=== PATIENT | female | born 1990 | race Caucasian/White ===

== ENCOUNTER → 2017-10-12 14:08 | Outpatient (CLI) | payer MEDICAID, SELFPAY ==
[2017-10-12 17:30] LABS: Hemoglobin A1c 5.5 % (4.2-6.3)
[2017-10-12 18:16] LABS: Follicle Stimulating Hormone 7.2 mIU/mL; Free T3 2.8 pg/mL (2.18-3.98); Luteinizing Hormone 7.3 mIU/mL; Thyroid Stim Hormone (TSH) 1.43 uIU/mL (0.358-3.74)
== END ==
PROVIDERS: Visit Provider Obstetrics & Gynecology
DX: N92.1 Excessive and frequent menstruation with irregular cycle (principal)
CPT/HCPCS: 36415; 83001; 83002; 83036; 84146; 84439; 84443; 84481

== ENCOUNTER → 2017-11-08 16:22 | Outpatient (CLI) | payer MEDICAID, SELFPAY ==
[2017-11-08 19:00] LABS: Chlamydia Trachomatis by PCR Negative (Negative); Neisserai gonorrhoeae by PCR Negative (Negative); Probe Check PASS; Sample Adequacy Control PASS; Specimen Processing Control PASS
== END ==
PROVIDERS: Visit Provider Obstetrics & Gynecology
DX: Z11.3 Encounter for screening for infections with a predominantly sexual mode of transmission (principal); Z30.430 Encounter for insertion of intrauterine contraceptive device
CPT/HCPCS: 87491; 87591

== ENCOUNTER → 2018-03-19 13:38 | Outpatient (CLI) | payer MEDICAID, SELFPAY ==
[2018-03-26 13:42] LABS: HPV Reflexed? NOT INDICATED
== END ==
PROVIDERS: Visit Provider Obstetrics & Gynecology
DX: Z12.4 Encounter for screening for malignant neoplasm of cervix (principal)
CPT/HCPCS: 88175; G0145

== ENCOUNTER → 2018-04-04 11:30 | Outpatient (CLI) | payer MEDICAID, SELFPAY ==
--- NOTE | 2018-04-04 | IMM_PTH ---
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 Yury Gasca MD : 1990 BED: DIS: SPEC #: [id number] RECD: 04/05/18 13:57 STATUS: MIL RE #: [id number] SILVIA: 04/04/18 00:[address]: Yury Gasca DEPT: IMMUNOHISTOCHEMISTRY RECD BY: Devorah Foss Tissues: Uterine cervix, NOS Procedures: p16 (initial) KI-67 (add) PHYSICIAN & INSTITUTION [place] [address] SPECIMEN INFORMATION: Tissue Source: A. Cervical biopsy Clinical Info: RANJANA pap 03/19/18 Specimen Number: [id number] CPT code: 29920, 42751 METHODOLOGY: Deparaffinized sections of prefer/formalin-fixed tissue or PAP/DQ stained slides are incubated with monoclonal/polyclonal antibodies/oligonucleotide probes. Localization is made via biotin free immunoperoxidase method. Appropriate controls are performed and reacted as expected. Results on target cell population are indicated in the following table: RESULTS: ANTIBODY / CLONE RESULT P16 (E6H4) positive, block-like Ki-67 (30-9) positive, moderate These tests were developed and their performance characteristics determined by [facility]. They may not have been cleared or approved by the U.S. Food and Drug Administration. The FDA has determined that such clearance or approval is not necessary. 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
--- NOTE | 2018-04-04 11:30 | CER_PTH ---
PATIENT: HERMES GUNTER [facility] U#:[id number] AGE/SX: 34/F ROOM: RE04/04/[address]: Dr. uYry Gasca MD : 1990 BED: DIS: SPEC #: [id number] RECD: 04/04/18 15:46 STATUS: MIL MAGEN #: [id number] SILVIA: 04/04/18 11:[address]: Yury Gasca DEPT: SURGICAL PATHOLOGY RECD BY: Devorah Foss Tissues: A - Uterine cervix, NOS B - Uterine cervix, NOS C - Endocervical Procedures: Surgery Specimen Level IV HEADER OPERATION: Colposcopy PRE-OP DIAGNOSIS: LGSIL pap 03/19/18 TISSUE SUBMITTED: A. Cervical biopsy, 6 o'clock, B. Cervical biopsy, 12 o'clock, C. ECC MICROSCOPIC DIAGNOSIS A. Cervix at 6 o'clock, biopsy: Moderate to focal severe squamous dysplasia and disarticulated epithelium, TEJ II-III (HGSIL). B. Cervix at 12 o'clock, biopsy: Focal HPV change suspected. Squamous metaplasia and chronic inflammation. C. Endocervix, curettings: Rare strips of benign superficial endocervix. No evidence of dysplasia. AM:aditi 04/05/18 COMMENT A. Immunohistochemistry ([id number]) supports the above diagnosis. Case has been reviewed in consultation with Dr. Pardo who concurs with the above diagnosis. IDC:SJ MICROSCOPIC DESCRIPTION Slides are reviewed. GROSS DESCRIPTION A. Received is one container labeled with the patient name and designated cervix biopsy 6 o'clock. The specimen consists of multiple irregular fragments of light moore soft tissue that in aggregate measure 0.5 x 0.5 x 0.1 cm. The specimen is totally submitted in one cassette. B. Received is one container labeled with the patient name and designated cervix biopsy 2 o'clock. The specimen consists of one irregular fragment of light moore soft tissue that measures 0.3 x 0.2 x 0.1 cm. The specimen is totally submitted in one cassette. C. Received in fixative is one container labeled with the patient's name and designated ECC. The specimen consists of mucoid material that measure in aggregate 1 x 0.1 x less than 0.1 cm. The specimen is totally submitted in one cassette. /AM:aditi 04/04/18 TC: 0 CPT: 26007
== END ==
PROVIDERS: Referring Provider Obstetrics & Gynecology; Visit Provider Obstetrics & Gynecology
DX: R87.612 Low grade squamous intraepithelial lesion on cytologic smear of cervix (LGSIL) (principal)
CPT/HCPCS: 88305; 88341; 88342

== ENCOUNTER 2018-05-09 10:30 | Day surgery (SDC) | payer MEDICAID, SELFPAY ==
[2017-12-06 11:16] VITALS: BMI 21.9
[2018-05-06 11:46] LABS: Hematocrit 40.9 % (37-47); Hemoglobin 13.5 g/dl (12.0-15.0); Mean Corpuscular Hgb 29.2 pg (27.0-32.0); Mean Corpuscular Volume 88.3 fL (81-99); Mean Platelet Vol. 11.1 fl (6.2-12.0); Platelet Count 227 K/mm3 (150-450); RBC Distribution Width CV 13.9 % (11.6-14.6); RBC Distribution Width SD 44.4 fl (35.1-43.9); Red Blood Count 4.63 M/mm3 (4.2-5.4); White Blood Count 10.4 K/mm3 (4.4-11.0)
[2018-05-06 11:47] LABS: Scan Indicated on CBC? Y/N NO
[2018-05-06 11:48] LABS: Prothrombin Time (Protime)PT. 13.3 SECONDS (11.7-14.9)
[2018-05-06 11:49] LABS: Partial Thromboplast Time 31.4 Seconds (24.1-36.2)
[2018-05-06 12:15] LABS: Pregnancy, Serum, hCG Quali. NEGATIVE Negative (0-9 Nonpreg)
[2018-05-09] VITALS (9 sets, daily range): BP systolic 83–107; BP diastolic 51–65; PULSE 68–88; RESP 16–18; TEMP 36.1–36.8; O2SAT 94–100; BMI 22.9
--- NOTE | 2018-05-09 | IMM_PTH ---
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 Yury Gasca MD : 1990 BED: DIS: 05/09/2018 SPEC #: [id number] RECD: 05/10/18 14:32 STATUS: MIL REQ #: [id number] SILVIA: 05/09/18 00:[address]: Yury Gasca DEPT: IMMUNOHISTOCHEMISTRY RECD BY: Lorena Caruso ENTERED: 05/10/18 14:33 SP TYPE: IMMUNO OTHR DR: Dr. Kyle Yap, DO Tissues: Uterine cervix, NOS Procedures: p16 (initial) KI-67 (add) PHYSICIAN & [place] [address] SPECIMEN INFORMATION: Tissue Source: Portion of ectocervix Clinical Info: Carcinoma in situ Specimen Number: [id number] CPT code: 41446, 89363 METHODOLOGY: Deparaffinized sections of prefer/formalin-fixed tissue or PAP/DQ stained slides are incubated with monoclonal/polyclonal antibodies/oligonucleotide probes. Localization is made via biotin free immunoperoxidase method. Appropriate controls are performed and reacted as expected. Results on target cell population are indicated in the following table: RESULTS: ANTIBODY / CLONE RESULT P16 (E6H4) negative Ki-67 (30-9) negative These tests were developed and their performance characteristics determined by [facility]. They may not have been cleared or approved by the U.S. Food and Drug Administration. The FDA has determined that such clearance or approval is not necessary. INTERPRETATION: Portion of ectocervix: Consistent with focal mild squamous dysplasia. SJ:noe 05/13/18
--- NOTE | 2018-05-09 07:21 | PCM.OPRPT ---
Problem List (1) Cervical dysplasia Status: Chronic Report of Operation Date of Procedure: 05/09/18 Pre-Operative Diagnosis: Moderate Cervical Dysplasia Post-Operative Diagnosis: same Surgery/Procedure Performed:: Loop Electrosurgical Excisional Procedure (LEEP) Description of Surgical Findings:: Normal appearing cervix and vagina. Lugol's easily identified transition zone. IUD strings in place but were cut during procedure. cable assembler: None Type of Anesthesia:: MAC Anesthesiologist: Francesca Hale Special Medications: none Specimen's removed: Portion of ectocervix Drains: none Estimated Blood Loss (mL): minimal Fluids Replaced: 400cc LR Description of Procedure: Caitie was taken to the OR with IV running. She was given two grams of Cefotetan intravenously prior to the procedure for surgical prophylaxis. MAC anesthesia was then introduced without complication. She was then prepped and draped in the dorsal lithotomy position. A shielded speculum was then placed. The cervix was then painted with Lugol's solution to identify the transition zone. A medium sized loop was then used to removed the ectocervix. Ball cautery was used to cauterized the margins of the surgical site and to affect excellent hemostasis. With hemostasis assured all instruments were removed from the vagina. Sponge and instrument counts were correct. She was reversed from sedation and taken to the recovery room in stable condition. Grafts/Implants Used: none - Complications none - Admit VTE Documentation VTE Present on Admission: No VTE Mechan Device Prophylaxis: [facility] [place]'s VTE Pharm Prophylaxis ordered?: No
--- NOTE | 2018-05-09 07:28 | OP.PCM_ITS ---
Problem List (1) Cervical dysplasia Status: Chronic Report of Operation Date of Procedure: 05/09/18 Pre-Operative Diagnosis: Moderate Cervical Dysplasia Post-Operative Diagnosis: same Surgery/Procedure Performed:: Loop Electrosurgical Excisional Procedure (LEEP) Description of Surgical Findings:: Normal appearing cervix and vagina. Lugol's easily identified transition zone. IUD strings in place but were cut during procedure. retinal angiographer: None Type of Anesthesia:: MAC Anesthesiologist: Francesca Hale Special Medications: none Specimen's removed: Portion of ectocervix Drains: none Estimated Blood Loss (mL): minimal Fluids Replaced: 400cc LR Description of Procedure: Caitie was taken to the OR with IV running. She was given two grams of Cefotetan intravenously prior to the procedure for surgical prophylaxis. MAC anesthesia was then introduced without complication. She was then prepped and draped in the dorsal lithotomy position. A shielded speculum was then placed. The cervix was then painted with Lugol's solution to identify the transition zone. A medium sized loop was then used to removed the ectocervix. Ball cautery was used to cauterized the margins of the surgical site and to affect excellent hemostasis. With hemostasis assured all instruments were removed from the vagina. Sponge and instrument counts were correct. She was reversed from sedation and taken to the recovery room in stable condition. Grafts/Implants Used: none - Complications none - Admit VTE Documentation VTE Present on Admission: No VTE Mechan Device Prophylaxis: [facility] [place] Prophylaxis ordered?: No
[2018-05-09 11:01] LABS: Internal QC Validated? YES +Cl - CLEAR BKGD; Pregnancy, Urine Negative Negative
--- NOTE | 2018-05-09 12:00 | CER_PTH ---
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 Yury Gasca MD : 1990 BED: DIS: 05/09/2018 SPEC #: [id number] RECD: 05/09/18 12:48 STATUS: MIL REMatt #: [id number] SILVIA: 05/09/18 12:[address]: Yury Gasca DEPT: SURGICAL PATHOLOGY RECD BY: Fish Block ENTERED: 05/09/18 13:38 SP TYPE: CERV OTHR DR: Dr. 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 Resection margins are free of dysplastic changes. SJ:noe 05/10/18 COMMENT Results of immunohistochemistry ([id number]) for surrogate HPV marker (p16) will be reported separately. Please make reference to previous specimen ([id number]) cervix at 6 o'clock, biopsy with diagnosis of moderate focal severe squamous dysplasia and disarticulated epithelium. MICROSCOPIC DESCRIPTION Slides are reviewed. GROSS DESCRIPTION Received in fixative is one container labeled with the patient's name and designated portion of ectocervix. The specimen consists of a C-shaped fragment of mucosa with attached submucosal tissue measuring 2.5 x 1 x 0.4 cm. The nonmucosal surfaces are inked. The specimen is serially sectioned and totally submitted in three cassettes. Note, a black suture measuring approximately 1.5 cm in greatest dimension is present free in the container. / AM:noe 05/09/18 TC:5 CPT: 95316
--- NOTE | 2018-05-09 12:01 | DCINST_ITS ---
You will use the following diet at home:: No restrictions Discharge Activity: Return to Normal Activity, May Drive, May not drive while t aking narcotic pain medications., May Shower Return to work on:: 05/13/18 May shower in (days): 0 May resume sexual activity in: 4 weeks Call your doctor if your incision/area has: Sudden Increased Bleeding, Foul Smelling Discharge Call your doctor if you observe: Fever of 101 or Higher, Inability to urinate, Inability to have a bowel movement, Using more than one pad per hour, Shortness of breath, Chest pain, Calf discomfort, Uncontrolled pain Cleanse incision/area with: Soap & Water Allergies/Adverse Reactions: Allergies aspirin Adverse Reaction (Verified 05/02/18 08:53) Hives Penicillins [PCN] Adverse Reaction (Verified 05/02/18 08:53) Other Medications to take at Discharge Ibuprofen [Motrin] 600 mg PO Q6H PRN PRN #20 tab 03/30/15 acetaminophen 500 mg tablet 500 mg PO Q6H PRN 12/06/17 citalopram 20 mg tablet 20 mg PO QDAY #90 tab 12/06/17 omeprazole 40 mg capsule,delayed release 40 mg PO QHS 12/06/17 Ibuprofen 600 mg PO 4X/DAY #20 tab 05/09/18 Oxycodone [Oxyir] 5 mg PO Q6H PRN PRN 7 Days #10 tab 05/09/18 The following prescriptions were given: Oxycodone [Oxyir] 5 mg PO Q6H PRN PRN 7 Days #10 tab PRN Reason: Severe Pain (-02/27) Ibuprofen 600 mg PO 4X/DAY #20 tab Primary Care Physician: Kyle Yap DO [Primary Care Provider] - Test Results: Test results from this visit will be discussed in further detail at your follow- up appointment, if applicable. Please Follow Up With: Yury Gasca MD When: one week Proposed Discharge Date: 05/09/18
== END 2018-05-09 13:41 | disposition home or self-care (01) ==
LOC: SDC 10:45 → AC 11:03
PROVIDERS: Anesthesiology; Family Provider Family Medicine; PCP Family Medicine; Referring Provider Obstetrics & Gynecology; Visit Provider Obstetrics & Gynecology
PROC: 0UBC7ZZ Excision of Cervix, Via Natural or Artificial Opening (ICD-10-PCS; CPT 57522; principal; 2018-05-09 11:45)
DX: N87.0 Mild cervical dysplasia (principal); K21.9 Gastro-esophageal reflux disease without esophagitis; F17.200 Nicotine dependence, unspecified, uncomplicated; Z79.899 Other long term (current) drug therapy
CPT/HCPCS: 57522; 36415; 81025; 84703; 85027; 85610; 85730; 86850; 86900; 88305; 88307; 88341; 88342; J7120; J2405

== ENCOUNTER → 2018-05-30 15:36 | Outpatient (CLI) | payer MEDICAID, SELFPAY ==
[2018-05-30 14:39] VITALS: BMI 22.9
[2018-05-30 17:37] LABS: Absolute Lymphocyte Count 2.93 X10^3/ul (0.83-4.51); Absolute Neutrophil Count 5.9 X10^3/uL (2.0-7.7); Basophil# 0.03 X10^3/uL; Basophil% 0.3 % (0-1); Eosinophil# 0.53 X10^3/uL; Eosinophils% 5.3 % (0-5); Hematocrit 41.3 % (37-47); Hemoglobin 13.3 g/dl (12.0-15.0); Lymphocyte # 2.93 X10^3/ul (4.0); Lymphocyte % 29.2 % (19-41); Mean Corp Hgb Conc 32.2 g/gl (32-36); Mean Corpuscular Hgb 28.7 pg (27.0-32.0); Mean Platelet Vol. 11.4 fl (6.2-12.0); Monocyte# 0.58 X10^3/uL; Monocyte% 5.8 % (0-10); Neutrophil # 5.93 X10^3/uL (2.7-7.7); Neutrophil % 59.2 % (47-70); Platelet Count 250 K/mm3 (150-450); RBC Distribution Width CV 13.4 % (11.6-14.6); RBC Distribution Width SD 43.7 fl (35.1-43.9); Red Blood Count 4.64 M/mm3 (4.2-5.4)
[2018-05-30 17:41] LABS: POSITIVE COUNT NO; POSITIVE DIFFERENTIAL NO; POSITIVE MORPHOLOGY NO
== END ==
PROVIDERS: Family Provider Family Medicine; PCP Family Medicine; Referring Provider Family Medicine; Visit Provider Family Medicine
DX: D64.9 Anemia, unspecified (principal)
CPT/HCPCS: 36415; 85025

== ENCOUNTER 2018-06-19 07:25 | Day surgery (SDC) | payer MEDICAID, SELFPAY ==
[2018-06-07 09:12] VITALS: BMI 22.9
--- NOTE | 2018-06-19 | GASB_PTH ---
PATIENT: HERMES GUNTER LOC: EN U#:[id number] AGE/SX: 27/F ROOM: RE06/19/[address]: Dr. Marly Pérez MD : 1990 BED: DIS: 06/19/2018 SPEC #: [id number] RECD: 06/19/18 09:07 STATUS: MIL MAGEN #: [id number] SILVIA: 06/19/18 00:[address]: Marly Pérez DEPT: SURGICAL PATHOLOGY RECD BY: Catarino Wilkinson ENTERED: 06/19/18 10:38 SP TYPE: Gastric Bx OTHR DR: Dr. Kyle Yap, DO Tissues: A - Gastric mucous membrane B - Gastric mucous membrane Procedures: Special Stain Group II Surgery Specimen Level IV Alcian Blue/PAS (control) HEADER OPERATION: Colonoscopy[place] [place] DIAGNOSIS: GERD, bright red blood per rectum TISSUE SUBMITTED: A - Antrum biopsy for H. pylori and path, B - GE junction biopsy MICROSCOPIC DIAGNOSIS A. Antrum biopsy for H. pylori and pathology: Mild chronic antral gastritis. B. Gastroesophageal junction, biopsy: Esophagogastric junctional mucosa showing moderate chronic inflammation and reactive glandular changes. No intestinal metaplasia or glandular dysplasia found. Alcian blue/PAS stain with appropriate control is negative for intestinal type goblet cell metaplasia. CE:noe 06/20/18 COMMENT A. The results of immunohistochemistry for Helicobacter pylori will be reported separately ([id number]). MICROSCOPIC DESCRIPTION Slides are reviewed. GROSS DESCRIPTION A - Received in fixative is one container labeled with the patient's name and designated gastric antrum. The specimen consists of multiple irregular fragments of light moore soft tissue that in aggregate measure 0.5 x 0.3 x 0.1 cm. The specimen is totally submitted in one cassette. B - Received in fixative is one container labeled with the patient's name and designated GE junction. The specimen consists of one irregular fragment of light moore soft tissue that measures 0.5 x 0.3 x 0.1 cm. The specimen is totally submitted in one cassette. / AM:noe 06/19/18 TC:3 CPT: 39917 x2, 01683
[2018-06-19 07:39] VITALS: BP 106/65; PULSE 81; RESP 16; TEMP 37.2; O2SAT 100; BMI 23.6
--- NOTE | 2018-06-19 08:30 | IMM_PTH ---
PATIENT: HERMES GUNTER LOC: EN U#:[id number] AGE/SX: 27/F ROOM: RE06/19/[address]: Dr. Marly Pérez MD : 1990 BED: DIS: 06/19/2018 SPEC #: [id number] RECD: 06/19/18 12:52 STATUS: [place] REQ #: [id number] SILVIA: 06/19/18 08:[address]: Marly Pérez DEPT: IMMUNOHISTOCHEMISTRY RECD BY: Lorena Caruso ENTERED: 06/19/18 12:52 SP TYPE: IMMUNO OTHR DR: Dr. Kyle Yap, DO Tissues: A - Stomach, NOS Procedures: H Pylori (initial) PHYSICIAN & INSTITUTION [place] [address] SPECIMEN INFORMATION: Tissue Source: A - Antrum biopsy Clinical Info: GERD, bright red blood per rectum Specimen Number: [id number] CPT code: 14178 METHODOLOGY: Deparaffinized sections of prefer/formalin-fixed tissue or PAP/DQ stained slides are incubated with monoclonal/polyclonal antibodies/oligonucleotide probes. Localization is made via biotin free immunoperoxidase method. Appropriate controls are performed and reacted as expected. Results on target cell population are indicated in the following table: RESULTS: ANTIBODY / CLONE RESULT Block A H Pylori (polyclonal) negative These tests were developed and their performance characteristics determined by [facility]. They may not have been cleared or approved by the U.S. Food and Drug Administration. The FDA has determined that such clearance or approval is not necessary. INTERPRETATION: A. Antrum biopsy: Immunohistochemical stain with appropriate control is negative for Helicobacter organisms. AM:noe 06/20/18
[2018-06-19 08:58] VITALS: BP 106/65; BP 97/66; PULSE 88; RESP 16; TEMP 36.5; O2SAT 96
--- NOTE | 2018-06-19 09:02 | OP.ENDO_ITS ---
Patient Name: Caitie Escalante Procedure Date: 06/19/2018 8:22 AM Date of : 1990 Age: 27 Procedure: Upper GI endoscopy Indications: Gastro-esophageal reflux disease Providers: Marly Pérez MD Medicines: Monitored Anesthesia Care Patient Profile: This is a 27 year old female. Complications: No immediate complications. Procedure: Pre-Anesthesia Assessment: - Prior to the procedure, a History and Physical was performed, and patient medications and allergies were reviewed. The patient's tolerance of previous anesthesia was also reviewed. The risks and benefits of the procedure and the sedation options and risks were discussed with the patient. All questions were answered, and informed consent was obtained. Prior Anticoagulants: The patient has taken no previous anticoagulant or antiplatelet agents. ASA Grade Assessment: II - A patient with mild systemic disease. After reviewing the risks and benefits, the patient was deemed in satisfactory condition to undergo the procedure. After obtaining informed consent, the endoscope was passed under direct vision. Throughout the procedure, the patient's blood pressure, pulse, and oxygen saturations were monitored continuously. The gastroscope was introduced through the mouth, and advanced to the second part of duodenum. The upper GI endoscopy was accomplished without difficulty. The patient tolerated the procedure well. Scope In: 8:32:34 AM Scope Out: 8:38:46 AM Total Procedure Duration Time 0 hours 6 minutes 12 seconds Findings: The Z-line was irregular and was found 37 cm from the incisors. Biopsies were taken with a cold forceps for histology. Localized mildly erythematous mucosa without bleeding was found in the prepyloric region of the stomach. Biopsies were taken with a cold forceps for Helicobacter pylori cultures. Biopsies were taken with a cold forceps for histology. The examined duodenum was normal. The exam of the esophagus was otherwise normal. The exam of the stomach was otherwise normal. Impression: - Z-line irregular, 37 cm from the incisors. Biopsied. - Erythematous mucosa in the prepyloric region of the stomach. Biopsied. - Normal examined duodenum. Recommendation: - Await pathology results. - Discharge patient to home. - Continue present medications. - Use sucralfate tablets 1 gram PO QID for 2 weeks. Procedure Code(s): --- Professional --- 51997, Esophagogastroduodenoscopy, flexible, transoral; with biopsy, single or multiple Diagnosis Code(s): --- Professional --- K21.9, Gastro-esophageal reflux disease without esophagitis K31.89, Other diseases of stomach and duodenum K22.8, Other specified diseases of esophagus CPT copyright 2017 [employer]. All rights reserved. The codes documented in this report are preliminary and upon bed manager review may be revised to meet current compliance requirements. MD Marly Hernandes MD 06/19/2018 9:01:44 AM This report has been signed electronically. Number of Addenda: 0 Note Initiated On: 06/19/2018 8:22 AM
[2018-06-19 09:05] VITALS: BP 106/65; BP 94/61; PULSE 88; RESP 16; O2SAT 100
--- NOTE | 2018-06-19 09:09 | OP.ENDO_ITS ---
Patient Name: Caitie Escalante Procedure Date: 06/19/2018 8:40 AM Date of : 1990 Age: 27 Procedure: Colonoscopy Indications: Rectal bleeding Providers: Marly Pérez MD Medicines: Monitored Anesthesia Care Patient Profile: This is a 27 year old female. This is a 27 year old female. Last Colonoscopy: none. The patient's first colonoscopy is today. Complications: No immediate complications. Procedure: Pre-Anesthesia Assessment: - Prior to the procedure, a History and Physical was performed, and patient medications and allergies were reviewed. The patient's tolerance of previous anesthesia was also reviewed. The risks and benefits of the procedure and the sedation options and risks were discussed with the patient. All questions were answered, and informed consent was obtained. Prior Anticoagulants: The patient has taken no previous anticoagulant or antiplatelet agents. ASA Grade Assessment: II - A patient with mild systemic disease. After reviewing the risks and benefits, the patient was deemed in satisfactory condition to undergo the procedure. After I obtained informed consent, the scope was passed under direct vision. Throughout the procedure, the patient's blood pressure, pulse, and oxygen saturations were monitored continuously. The colonoscope was introduced through the anus and advanced to the cecum, identified by the appendiceal orifice, ileocecal valve and palpation. The colonoscopy was performed without difficulty. The patient tolerated the procedure well. The quality of the bowel preparation was good. Scope In: 8:41:28 AM Scope Withdrawal Time 0 hours 8 minutes 11 seconds Scope Out: 8:53:34 AM Total Procedure Duration Time 0 hours 12 minutes 6 seconds Findings: The perianal and digital rectal examinations were normal. The entire examined colon appeared normal on direct and retroflexion views. Impression: - The entire examined colon is normal on direct and retroflexion views. - No specimens collected. Recommendation: - Discharge patient to home. - Continue present medications. - Repeat colonoscopy at age 51 [reason]. Procedure Code(s): --- Professional --- 00326, Colonoscopy, flexible; diagnostic, including collection of specimen(s) by brushing or washing, when performed (separate procedure) Diagnosis Code(s): --- Professional --- K62.5, Hemorrhage of anus and rectum CPT copyright 2017 [employer]. All rights reserved. The codes documented in this report are preliminary and upon substation operator apprentice review may be revised to meet current compliance requirements. MD Maryl Hernandes MD 06/19/2018 9:08:37 AM This report has been signed electronically. Number of Addenda: 0 Note Initiated On: 06/19/2018 8:40 AM
[2018-06-19 09:10] VITALS: BP 106/65; BP 99/72; PULSE 80; RESP 16; O2SAT 98
[2018-06-19 09:15] VITALS: BP 100/64; BP 106/65; PULSE 72; RESP 16; TEMP 36.8; O2SAT 100
[2018-06-19 09:27] VITALS: BP 106/65
== END 2018-06-19 09:42 | disposition home or self-care (01) ==
LOC: EN 07:25 → AC 07:27
PROVIDERS: Family Provider Family Medicine; PCP Family Medicine; Referring Provider Surgery; Visit Provider Surgery
PROC: 0DJD8ZZ Inspection of Lower Intestinal Tract, Via Natural or Artificial Opening Endoscopic (ICD-10-PCS; CPT 45378; principal; 2018-06-19 08:25)
DX: K29.50 Unspecified chronic gastritis without bleeding (principal); K21.0 Gastro-esophageal reflux disease with esophagitis; F32.9 Major depressive disorder, single episode, unspecified; F41.9 Anxiety disorder, unspecified; F17.200 Nicotine dependence, unspecified, uncomplicated; Z80.0 Family history of malignant neoplasm of digestive organs; Z79.899 Other long term (current) drug therapy
CPT/HCPCS: 43239; 45378; 88305; 88313; 88342; J7120; J2405

== ENCOUNTER → 2018-10-08 | Outpatient (CLI) | payer MEDICAID, SELFPAY ==
[2018-10-16 16:40] LABS: HPV HC, High Risk Negative (Negative)
== END | disposition home or self-care (01) ==
LOC: LABSPEC 11:00
PROVIDERS: Visit Provider Obstetrics & Gynecology
DX: R87.612 Low grade squamous intraepithelial lesion on cytologic smear of cervix (LGSIL) (principal); R87.613 High grade squamous intraepithelial lesion on cytologic smear of cervix (HGSIL)
CPT/HCPCS: 87624; 88175; G0145

== ENCOUNTER 2018-11-05 01:11 | Emergency (ER) | payer MEDICAID, SELFPAY ==
[2018-11-05 01:12] VITALS: BP 114/66; PULSE 92; RESP 14; TEMP 36.8; O2SAT 98; BMI 24.3
[2018-11-05] MEDS: Ketorolac 30 MG/ML Syringe IV (01:55)
[2018-11-05] MEDS: 0.9% Normal Saline 1,000 ML 150 ML IV (01:55)
[2018-11-05] MEDS: Ondansetron 4 MG/2 ML Vial IV (01:55)
[2018-11-05 02:02] LABS: Mucous, Urine 0 SEEN /hpf (<or=2+); Red Blood Cells-Urine 0 SEEN /hpf (0-5); White Blood Cells 0 SEEN /hpf (0-5)
[2018-11-05 02:07] LABS: Absolute Lymphocyte Count 3.45 X10^3/ul (0.83-4.51); Absolute Neutrophil Count 4.7 X10^3/uL (2.0-7.7); Basophil# 0.02 X10^3/uL; Basophil% 0.2 % (0-1); Color, Urine Straw (Yellow); Eosinophil# 0.44 X10^3/uL; Eosinophils% 4.8 % (0-5); Glucose, Dipstick Normal (Normal); Hematocrit 39.9 % (37-47); Hemoglobin 13.5 g/dl (12.0-15.0); Ketone-Dipstick Negative (Negative); Leukocyte Esterase-Dipstick Negative /ul (Negative); Lymphocyte # 3.45 X10^3/ul (4.0); Mean Corp Hgb Conc 33.8 g/gl (32-36); Mean Corpuscular Hgb 29.9 pg (27.0-32.0); Mean Corpuscular Volume 88.3 fL (81-99); Mean Platelet Vol. 11.1 fl (6.2-12.0); Monocyte# 0.48 X10^3/uL; Monocyte% 5.3 % (0-10); Neutrophil # 4.68 X10^3/uL (2.7-7.7); Neutrophil % 51.5 % (47-70); Nitrite-Dipstick Negative (Negative); Occult Blood-Urine Negative /ul (Negative); Platelet Count 172 K/mm3 (150-450); Protein-Dipstick Negative (Negative); RBC Distribution Width SD 41.6 fl (35.1-43.9); Red Blood Count 4.52 M/mm3 (4.2-5.4); Specific Gravity, Urine 1.005 (1.002-1.030); Urine Bilirubin Dipstick Negative (Negative); Urine Clarity Clear (Clear); Urine Urobilinogen Normal (Normal); White Blood Count 9.1 K/mm3 (4.4-11.0)
[2018-11-05 02:08] LABS: POSITIVE COUNT NO; POSITIVE DIFFERENTIAL NO; POSITIVE MORPHOLOGY NO
[2018-11-05 02:18] LABS: Bacteria RARE /hpf (None Seen); Squamous Epithelial Cells - UA 0-5 SEEN /hpf (5-10)
[2018-11-05 02:22] LABS: Anion Gap 7 (5-15); BUN 13 mg/dL (7-18); BUN/Creat Ratio 19.8 RATIO (10-20); Calcium,Total 8.6 mg/dL (8.5-10.1); Chloride 106 mmol/L (98-107); Creatinine, Serum 0.66 mg/dL (0.55-1.02); EST Glomerular Filtration Rate 115 mL/min (>60); Est Glom Filt Rate - Afr Amer 139 mL/min (>60); Estimated Creatinine Clearance 115.21 ml/min; Glucose 106 mg/dL (74-106); Potassium 3.8 mmol/L (3.5-5.1); Sodium Level 140 mmol/L (136-145)
--- NOTE | 2018-11-05 02:34 | ED.DCSUM_ITS ---
- ER Visit Summary Date of Service: 11/05/18 Chief Complaint: Abdominal pain History of Present Illness: The patient is a 28 F who developed pain in the suprapubic region rather suddenly [place] hour prior to arrival. She states she felt nauseated and vomited x1. She has had no back pain. She does note urinary frequency recently but no dysuria. She has not had fever or chills. Patient states her last menstrual cycle was October 11 through October 21. She had both fallopian tubes completely removed in the past. Physical Examination: Vital signs unremarkable. She is afebrile. Patient sitting upright in bed no acute distress. She is nontoxic appearing. Heart is regular rate and rhythm. Lung sounds are clear. Abdomen is soft with mild suprapubic region. No guarding or rebound. Active bowel sounds are noted. No CVA tenderness. Test Results: CBC and chemistry studies are unremarkable. Urinalysis is normal. Emergency Department Course and Treatment: Patient is given Toradol, Zofran, and IV fluids. On repeat evaluation she is resting comfortably. Advised her at this time I do not see a specific cause for her pain. My clinical suspicion for kidney stone is low. With her urinary frequency advised she may have a very early infection, but at this time I cannot detect on her testing. She continues to have symptoms she is to have her urine rechecked. She will get a prescription for naproxen to help with pain. Treatment Plan: [] Disposition: Discharge Impression: Abdominal pain, uncertain etiology This note was generated with [employer]pi[employer] dictation software. It may contain incorrect words, spelling, and punctuation that were not noted in review of the chart prior to signing ED Disposition - Plan for ED Patient: Disposition: Home or Assisted Living Instructions: ED Abdominal Pain Unkn Cause Prescriptions: Naproxen [Naprosyn] 500 mg PO BID PRN PRN #20 tablet PRN Reason: Pain Referrals: Kyle Yap, DO [Primary Care Provider] - 1 Week if not improving
== END 2018-11-05 02:47 | disposition home or self-care (01) ==
PROVIDERS: Emergency Provider Emergency Medicine; Family Provider Family Medicine; PCP Family Medicine
DX: R10.30 Lower abdominal pain, unspecified (principal); K21.9 Gastro-esophageal reflux disease without esophagitis; F32.9 Major depressive disorder, single episode, unspecified; F41.9 Anxiety disorder, unspecified; Z72.0 Tobacco use; Z79.899 Other long term (current) drug therapy
CPT/HCPCS: 80048; 81001; 85025; 96361; 96374; 96375; 99283; J7030; J2405

== ENCOUNTER 2019-02-10 05:37 | Day surgery (SDC) | payer MEDICAID, SELFPAY ==
[2018-11-27 09:44] VITALS: BMI 24.3
[2019-02-05 12:40] LABS: Hematocrit 40.7 % (37-47); Hemoglobin 13.4 g/dL (12.0-15.0); Mean Corp Hgb Conc 32.9 g/dL (32-36); Mean Corpuscular Hgb 29.5 pg (27.0-32.0); Mean Corpuscular Volume 89.6 fL (81-99); Mean Platelet Vol. 11.2 fl (6.2-12.0); Platelet Count 207 K/mm3 (150-450); RBC Distribution Width CV 12.6 % (11.6-14.6); RBC Distribution Width SD 41.8 fl (35.1-43.9); Red Blood Count 4.54 M/mm3 (4.2-5.4); White Blood Count 9.9 K/mm3 (4.4-11.0)
[2019-02-05 12:43] LABS: International Normalized Ratio 1.1; Prothrombin Time (Protime)PT. 13.6 SECONDS (11.7-14.9)
[2019-02-05 12:44] LABS: Partial Thromboplast Time 29.6 Seconds (24.1-36.2)
[2019-02-05 13:17] LABS: Creatinine, Serum 0.66 mg/dL (0.55-1.02); EST Glomerular Filtration Rate 114 mL/min (>60); Est Glom Filt Rate - Afr Amer 137 mL/min (>60)
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
[2019-02-10] VITALS (12 sets, daily range): BP systolic 93–117; BP diastolic 49–73; PULSE 80–98; RESP 16–18; TEMP 36.1–37.1; O2SAT 96–100; BMI 23.3; BMI 25.7
[2019-02-10] MEDS: Lactated Ringers 1,000 ML 100 ML IV ×2 (06:46→07:00)
--- NOTE | 2019-02-10 07:30 | HYST_PTH ---
PATIENT: HERMES GUNTER LOC: [facility] – [place] U#:[id number] AGE/SX: 28/F ROOM: RE02/10/[address]: Dr. Arun Ozuna MD : 1990 BED: DIS: 02/11/2019 SPEC #: [id number] RECD: 02/10/19 11:29 STATUS: MIL MAGEN #: [id number] SILVIA: 02/10/19 07:[address]: Arun Ozuna DEPT: SURGICAL PATHOLOGY RECD BY: Sonny Holm ENTERED: 02/10/19 12:18 SP TYPE: HYSTERECT OTHR DR: Dr. Kyle Yap, DO Tissues: Uterus, NOS Procedures: Surgery Specimen Level V HEADER OPERATION: Robotic assisted vaginal hysterectomy PRE-OP DIAGNOSIS: Menorrhagia, irregular heavy menses TISSUE SUBMITTED: Uterus, cervix MICROSCOPIC DIAGNOSIS Uterus, hysterectomy: Cervix - mild chronic inflammation. 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 Myometrium - focal superficial adenomyosis. AM:noe 02/12/19 COMMENT Case has been reviewed in consultation with Dr. Pardo who concurs with the above diagnosis. IDC:SJ MICROSCOPIC DESCRIPTION Slides are reviewed. GROSS DESCRIPTION Received in fixative is one container labeled with the patient's name and designated uterus. The specimen consists of a uterus with attached cervix without fallopian tubes and ovaries measuring 11 x 7.5 x 5 cm and weighing 147 gm. The ectocervix is unremarkable. The cervical os is oval in contour. The endocervical canal measures 4.7 cm in length and is grossly unremarkable. The triangular endometrial cavity measures 4.5 x 3.6 cm. The endometrium is light moore, velvety and glistening and measures up to 0.2 cm in greatest thickness. The endometrial cavity contains a plastic T-shaped intrauterine device measuring 3.5 x 3.5 x 0.3 cm. The device is intact without migration or embedment into the underlying myometrium or endometrium. The myometrium measures 2.4 cm in average thickness and is free of mass lesions. Management Accountant sections are submitted in six cassettes as follows: 1 - anterior cervix, 2??posterior cervix, 3 & 4 - anterior uterine wall, 5 & 6 - posterior uterine wall. / AM:noe 02/10/19 The paracervical tissue is inked. The cervix is amputated from the uterus. The amputated cervix is inked?in red ink. More sections are submitted as follows: 7-10 - remainder of anterior cervix, 1114??remainder of posterior cervix. / AM:noe 02/11/19 TC:5 CPT: 97594
--- NOTE | 2019-02-10 07:40 | OP.PCM_ITS ---
Report of Operation Date of Procedure: 02/10/19 Pre-Operative Diagnosis: Menorrhagia, Irregular Heavy Menses Post-Operative Diagnosis: Menorrhagia, Irregular Heavy Menses, Adhesions Surgery/Procedure Performed:: Robotic Assisted Vaginal Hysterectomy And Lysis of Adhesions Description of Surgical Findings:: 12 cm uterus with absent fallopian tubes and normal-appearing ovaries. Adhesions of the omentum to the anterior abdominal wall and uterus and ovaries. 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 Multiple conservative measures have not been helpful. The patient has been counseled regarding the risks, benefits and alternatives of this procedure including the possibility of bleeding, infection, and injury to surrounding structures such as bowel bladder and all questions were answered. She understands that if BSO is needed that she will need to be on HRT for an indefinite period of time. Procedure: Pt taken to the operating room where, after induction of general anesthesia, the patient was prepped and draped in the usual sterile fashion and placed on a non-slip Huggy-u-vac device. Trendelenburg test was satisfactory. Bladder was drained of urine with a Juarez catheter which was left in place. Anterior cervix grasped and cervix was dilated to about 3-4 mm. Uterus sounded to 12 cms. 0-Vicryl suture was placed at the 3:00 and 9:00 position of the cervix. A small Advincula Head Cleaning Porter Uterine Manipulator was then placed in the uterus and attention was turned to the laparoscopic portion of the procedure. Ropivocaine 0.5% was injected approximately 2-3 cm superior to the umbilicus and an 8 mm robotic camera port was introduced directly with intraperitoneal placement confirmed with CO2 insufflation. 8 mm robotic side ports were introduced under direct visualization approximately 11 cm lateral and 2 cm inferior to the umbilical port. A 5 mm left upper quadrant port was introduced and airseal insufflation with CO2 was started. The above findings were noted. Adhesions were taken down on the anterior abdominal wall with bipolar scissors before docking the robot. Robot was docked without difficulty and attention turned to the robotic portion of the procedure. Approximately 30 cc of Ropivicaine was used. After clearing adhesions from the uterus and fallopian tubes with bipolar cautery and monopolar scissors, bilateral utero-ovarian ligaments were ligated with 35 spann bipolar coagulation to the level of the round ligament. The posterior aspect of the cervix was identified and then opened for about 1 cm using 25 watt monopolar cautery identifying the uterine manipulating device which had been placed vaginally. Bladder flap was opened and divided to the level of the round ligaments using monopolar cautery. Progressive bites were then ligated on each side of the cervix with 35 spann bipolar cautery to the uterine arteries. The anterior vaginal mucosa was entered and cervix circumscribed with monopolar cautery. Uterus was removed through the vagina. Vaginal cuff was closed first with 0-Vicryl Walter stitches placed at each angle followed by closure of the mid-cuff with 0-Monocryl V-lock suture in two layers. Pelvis was copiously irrigated with saline and the right and left ureter were noted to peristalse. Robot was undocked and trocars were removed with as much gas as possible. Incisions were closed with 4-0 Monocryl subcuticular sutures and incisions covered with steri-strips. The patient tolerated the procedure well and was taken to the recovery room in satisfactory condition. Sponge, instruments and needle counts were all correct. There were no apparent complications of the surgery. Cefotan 2 gms IV was given prior to the procedure. Estimated Blood Loss: Minimal Specimen to Pathology: Uterus Grafts/Implants Used: None - Complications None - Admit VTE Documentation VTE Present on Admission: Yes VTE Mechan Device Prophylaxis: SCD's VTE Pharm Prophylaxis ordered?: Yes
[2019-02-10] MEDS: Ropivacaine 0.5% 30 ML Vial (08:30)
--- NOTE | 2019-02-10 10:07 | DCINST_ITS ---
Discharge Diet: No Restrictions Discharge Activity: Return to Normal Activity, May Not Drive - while taking narcotic pain medications., May Shower May resume sexual activity in: 6-8 weeks Call your doctor if your incision/area has: Continuous Slow Oozing, Sudden Increased Bleeding, Increased Pain/ Swelling, Increased Redness, Foul Smelling Discharge Call your doctor if you observe: Fever of 101 or Higher, Inability to urinate, Inability to have a bowel movement, Using more than one pad per hour Allergies/Adverse Reactions: Allergies aspirin Adverse Reaction (Verified 02/10/19 06:37) Hives Penicillins [PCN] Adverse Reaction (Verified 02/10/19 06:37) Other Medications to take at Discharge Citalopram [Celexa] 20 mg PO QDAY 02/03/19 Omeprazole 40 mg PO DINNER 02/03/19 Docusate Sodium [Colace] 100 mg PO BID PRN PRN #60 cap 02/10/19 Oxycodone [Oxyir] 5 mg PO Q6H PRN PRN 7 Days #10 tab 02/10/19 The following prescriptions were given: Docusate Sodium [Colace] 100 mg PO BID PRN PRN #60 cap PRN Reason: Constipation Prescription Printed Oxycodone [Oxyir] 5 mg PO Q6H PRN PRN 7 Days #10 tab PRN Reason: Severe Pain (-02/27) Prescription Printed Primary Care Physician: Kyle Yap DO [Primary Care Provider] - Test Results: Test results from this visit will be discussed in further detail at your follow- up appointment, if applicable. Please Follow Up With: Arun Ozuna MD When: 2 to 3 weeks
[2019-02-10] MEDS: Dextrose 5%-Lactated Ringers 1,000 ML 125 ML IV ×2 (12:01→18:53)
[2019-02-10] MEDS: HYDROmorphone 0.5 MG/0.5 ML SYRINGE IV (12:28)
[2019-02-10] MEDS: Ketorolac 30 MG/ML Syringe IV ×2 (12:35→18:53)
[2019-02-10] MEDS: Pantoprazole Sodium 40 MG Tablet PO (17:38)
[2019-02-10] MEDS: Enoxaparin 30 MG/0.3 ML Syringe SC (17:38)
[2019-02-10] MEDS: oxyCODONE 5 MG Tablet PO (17:43)
[2019-02-10] MEDS: Acetaminophen 500 MG Tablet 1000 MG PO (17:43)
--- NOTE | 2019-02-10 17:57 | NURSING ---
verified orders w/ dr cardona
[2019-02-10] MEDS: 0.9% NaCl Peripheral Flush Adult/Peds IV (18:55)
[2019-02-11] MEDS: Ketorolac 30 MG/ML Syringe IV ×2 (01:05→06:14)
[2019-02-11] MEDS: 0.9% NaCl Peripheral Flush Adult/Peds IV ×2 (01:06→06:14)
[2019-02-11 03:12] VITALS: BP 98/54; PULSE 77; RESP 16; TEMP 36.8; O2SAT 97
[2019-02-11 06:15] LABS: Hematocrit 35.1 % (37-47); Hemoglobin 11.8 g/dL (12.0-15.0); Mean Corp Hgb Conc 33.6 g/dL (32-36); Mean Corpuscular Hgb 30.6 pg (27.0-32.0); Mean Corpuscular Volume 91.2 fL (81-99); Mean Platelet Vol. 11.4 fl (6.2-12.0); Platelet Count 173 K/mm3 (150-450); RBC Distribution Width SD 42.9 fl (35.1-43.9); Red Blood Count 3.85 M/mm3 (4.2-5.4); White Blood Count 10.3 K/mm3 (4.4-11.0)
[2019-02-11 06:36] LABS: Creatinine, Serum 0.51 mg/dL (0.55-1.02); EST Glomerular Filtration Rate 152 mL/min (>60); Est Glom Filt Rate - Afr Amer 184 mL/min (>60)
[2019-02-11 07:23] VITALS: O2SAT 97
[2019-02-11] MEDS: Acetaminophen 500 MG Tablet 1000 MG PO (07:30)
[2019-02-11] MEDS: oxyCODONE 5 MG Tablet PO (07:30)
--- NOTE | 2019-02-11 08:44 | PCM.PN.OB ---
Subjective: Patient without complaints. Tolerating diet well. Minimal vaginal bleeding. Ready to go home when able to void after Juarez is discontinued. - Physical Exam Vital Signs Temp Pulse Resp BP Pulse Ox 98.2 F 77 16 98/54 L 97 02/11/19 03:12 02/11/19 03:12 02/11/19 03:12 02/11/19 03:12 02/11/19 03:12 Oxygen Delivery Method Room Air Weight: 154 lb 5.177 oz Body Mass Index (BMI) 25.7 Intake and Output for Last 24 Hours 02/09/19 02/10/19 02/11/19 23:59 23:59 23:59 Intake Total 2881.66 / 2881.66 1158.33 / 1158.33 Output Total 1000 / 1000 800 / 800 Balance 1881.66 / 1881.66 358.33 / 358.33 Laboratory Tests Past 24 Hrs 02/11/19 02/11/19 05:58 05:58 WBC 10.3 RBC 3.85 L Hgb 11.8 L Hct 35.1 L MCV 91.2 MCH 30.6 MCHC 33.6 RDW Std Deviation 42.9 RDW Coeff of Evens 13.0 Plt Count 173 MPV 11.4 Creatinine 0.51 L Estim Creat Clear Calc 149.10 Est GFR (MDRD) Af Amer 184 Est GFR (MDRD) Non-Af 152 Wounds are clean, dry, intact. Good urine output. Minimal vaginal bleeding. Hemoglobin and creatinine okay. Medical Necessity - Tobacco Use Smoking Status: Current every day smoker Tobacco Use: Cigarettes Assessment/Plan Doing well postoperative day #1 status post robotic assisted vaginal hysterectomy. Will release to home with routine instructions.
[2019-02-11 08:59] VITALS: BP 105/62; PULSE 85; RESP 18; TEMP 36.8; O2SAT 100
[2019-02-11] MEDS: Citalopram 20 MG Tablet PO (08:59)
== END 2019-02-11 11:20 | disposition home or self-care (01) ==
LOC: SDC 05:39 → AC 05:39 → MS3 07:38
PROVIDERS: Family Provider Family Medicine; PCP Family Medicine; Referring Provider Obstetrics & Gynecology; Visit Provider Obstetrics & Gynecology
PROC: 0UT94ZZ Resection of Uterus, Percutaneous Endoscopic Approach (ICD-10-PCS; CPT 49329; principal; 2019-02-10 07:10)
DX: N80.0 Endometriosis of uterus (principal); N85.00 Endometrial hyperplasia, unspecified; N72 Inflammatory disease of cervix uteri; K21.9 Gastro-esophageal reflux disease without esophagitis; F41.9 Anxiety disorder, unspecified; F32.9 Major depressive disorder, single episode, unspecified; F17.210 Nicotine dependence, cigarettes, uncomplicated; Z79.899 Other long term (current) drug therapy
CPT/HCPCS: 49329; 58550; 36415; 82565; 85027; 85610; 85730; 86850; 86900; 86901; 88307; 99406; J7120; A4216; J2405

== ENCOUNTER → 2019-06-26 | Outpatient (CLI) | payer MEDICAID, SELFPAY ==
[2019-06-25 15:58] VITALS: BMI 23.4
[2019-06-26 12:31] LABS: Erythrocyte Sedimentation Rate 8 mm/hr (0-20)
[2019-06-26 12:56] LABS: Anion Gap 3 (5-15); BUN 12 mg/dL (7-18); BUN/Creat Ratio 16.7 RATIO (10-20); Calcium,Total 8.9 mg/dL (8.5-10.1); Chloride 110 mmol/L (98-107); Creatinine, Serum 0.72 mg/dL (0.55-1.02); EST Glomerular Filtration Rate 103 mL/min (>60); Est Glom Filt Rate - Afr Amer 125 mL/min (>60); Glucose 90 mg/dL (74-106); Potassium 3.8 mmol/L (3.5-5.1); Sodium Level 138 mmol/L (136-145)
== END | disposition home or self-care (01) ==
LOC: BIMLAB 09:53
PROVIDERS: PCP Family Medicine; Visit Provider Family Medicine
DX: R25.2 Cramp and spasm (principal); M25.50 Pain in unspecified joint
CPT/HCPCS: 36415; 80048; 85652

== ENCOUNTER → 2019-09-12 | Outpatient (CLI) | payer MEDICAID, SELFPAY ==
[2019-09-11 13:53] VITALS: BMI 25.7
--- NOTE | 2019-09-12 13:21 | EKG12_ITS ---
Test Reason : ARRYTHMIAS Blood Pressure : / mmHG Vent. Rate : 087 BPM Atrial Rate : 087 BPM P-R Int : 134 ms QRS Dur : 086 ms QT Int : 346 ms P-R-T Axes : 078 057 043 degrees QTc Int : 416 ms Normal sinus rhythm Normal ECG Confirmed by BUDDY OH, ALYSSIA ([id number]), sound editor SAE CAMP ([id number]) on 09/15/2019 10:28:21 AM Referred By: Anthony Washington Confirmed By:ALYSSIA GOODWIN MD
[2019-09-12 13:59] LABS: Absolute Lymphocyte Count 2.73 X10^3/uL (0.83-4.51); Absolute Neutrophil Count 2.6 X10^3/uL (2.0-7.7); Basophil# 0.04 X10^3/uL; Basophil% 0.7 % (0-1); Eosinophil# 0.39 X10^3/uL; Eosinophils% 6.4 % (0-5); Hematocrit 42.8 % (37-47); Hemoglobin 14.2 g/dL (12.0-15.0); Lymphocyte # 2.73 X10^3/ul (4.0); Lymphocyte % 44.6 % (19-41); Mean Corp Hgb Conc 33.2 g/dL (32-36); Mean Corpuscular Hgb 28.9 pg (27.0-32.0); Mean Platelet Vol. 10.7 fl (6.2-12.0); Monocyte% 6.5 % (0-10); NRBC Flagged by Analyzer 0 % (0-5); Neutrophil # 2.55 X10^3/uL (2.7-7.7); Neutrophil % 41.6 % (47-70); Platelet Count 232 K/mm3 (150-450); RBC Distribution Width CV 12.8 % (11.6-14.6); RBC Distribution Width SD 40.7 fl (35.1-43.9); Red Blood Count 4.92 M/mm3 (4.2-5.4); White Blood Count 6.1 K/mm3 (4.4-11.0)
[2019-09-12 14:44] LABS: AST(SGOT) 23 U/L (15-37); Alanine Aminotransfer ALT/SGPT 49 U/L (13-56); Albumin, Serum 3.9 g/dL (3.2-5.0); Alkaline Phosphatase 83 U/L (45-117); Anion Gap 4 (5-15); BUN 11 mg/dL (7-18); BUN/Creat Ratio 15.2 RATIO (10-20); Calcium,Total 9.2 mg/dL (8.5-10.1); Chloride 105 mmol/L (98-107); Creatinine, Serum 0.72 mg/dL (0.55-1.02); EST Glomerular Filtration Rate 102 mL/min (>60); Est Glom Filt Rate - Afr Amer 123 mL/min (>60); Globulin 3.8 g/dL (2.2-4.2); Glucose 91 mg/dL (74-106); Magnesium 1.8 mg/dL (1.6-2.6); Potassium 3.9 mmol/L (3.5-5.1); Protein, Total 7.7 g/dL (6.4-8.2); Sodium Level 137 mmol/L (136-145); Thyroid Stim Hormone (TSH) 1.45 uIU/mL (0.358-3.74)
== END | disposition home or self-care (01) ==
PROVIDERS: PCP Family Medicine; Referring Provider Nurse Practitioner Family; Visit Provider Nurse Practitioner Family
DX: K62.5 Hemorrhage of anus and rectum (principal); R00.0 Tachycardia, unspecified
CPT/HCPCS: 36415; 80053; 83735; 84443; 85025; 93005

== ENCOUNTER → 2019-10-28 | Outpatient (CLI) | payer MEDICAID, SELFPAY ==
[2019-10-22 15:36] VITALS: BMI 25.7
== END | disposition home or self-care (01) ==
LOC: PSN 12:44
PROVIDERS: PCP Family Medicine; Referring Provider Nurse Practitioner Family; Visit Provider Nurse Practitioner Family
DX: R00.2 Palpitations (principal)
CPT/HCPCS: 93225; 93226

== ENCOUNTER → 2019-12-01 | Outpatient (CLI) | payer MEDICAID, SELFPAY ==
[2019-10-22 15:36] VITALS: BMI 25.7
--- NOTE | 2019-12-01 13:55 | ECHOD_ITS ---
Reason For Study: Arrhythmia Procedure This was a 2D Doppler, Color Flow transthoracic echocardiogram. Exam performed in department. Left Ventricle Normal LV size. Left ventricular systolic function is normal. The estimated ejection fraction is 65 %. Normal diastology for age. No regional wall motion abnormalities noted. Right Ventricle Normal RV size. Normal systolic function. Atria Normal left atrium. Normal right atrium. Mitral Valve Normal mitral valve. Tricuspid Valve Normal tricuspid valve. Trivial tricuspid valve insufficiency. Aortic Valve Normal aortic valve. Trisinus/trileaflet aortic valve. Pulmonic Valve Normal pulmonic valve. Great Vessels Normal aortic root. The pulmonary artery is normal size. Inferior vena cava collapse with sniff. Pericardium/Pleural No pericardial effusion. MMode/2D Measurements & Calculations LVIDd: 4.3 cm IVSd: 0.82 cm Ao root diam: 2.5 cm LVIDs: 2.9 cm LVPWd: 0.76 cm LA dimension: 2.2 cm RVDd: 3.0 cm FS: 31.7 % LAV(MOD-bp): 24.6 ml LVAd ap4: 23.6 cm2 SV(MOD-sp4): 37.6 ml LAV(MOD-bp) Indexed: 14.1 ml/m2 EDV(MOD-sp4): 59.7 ml LAV(MOD-sp2): 25.5 ml EDV(sp4-el): 61.3 ml LAV(MOD-sp4): 18.6 ml LVAs ap4: 12.6 cm2 ESV(MOD-sp4): 22.1 ml ESV(sp4-el): 22.3 ml EF(MOD-sp4): 63.0 % EF(sp4-el): 63.7 % SV(sp4-el): 39.0 ml LA A4 area: 10.4 cm2 RA A4 area: 9.3 cm2 Doppler Measurements & Calculations MV E max jeramy: 104.1 cm/sec Lat Peak E' Jeramy: 17.0 cm/sec Med Peak E' Jeramy: 12.3 cm/sec MV A max jeramy: 57.7 cm/sec E/E' lat: 6.1 E/E' med: 8.5 MV E/A: 1.8 Ao V2 max: 141.8 cm/sec LV V1 max: 122.3 cm/sec PA V2 max: 98.2 cm/sec Ao max P.0 mmHg LV V1 max P.0 mmHg Ao V2 mean: 101.6 cm/sec Ao mean P.5 mmHg Ao V2 VTI: 29.6 cm TR max jeramy: 166.8 cm/sec TR max P.1 mmHg Interpretation Summary Normal LV size. Left ventricular systolic function is normal. The estimated ejection fraction is 65 %. Normal diastology for age. Structurally normal valves. Ordering Physician: Anthony Washington Referring Physician: Kyle Yap Performed By: Ivelisse Watkins RVT, RDCS and Student
== END | disposition home or self-care (01) ==
LOC: CVS 13:55
PROVIDERS: PCP Family Medicine; Referring Provider Nurse Practitioner Family; Visit Provider Nurse Practitioner Family
DX: R00.2 Palpitations (principal); R00.0 Tachycardia, unspecified
CPT/HCPCS: 93306

== ENCOUNTER → 2020-08-11 08:18 | Outpatient (CLI) | payer MEDICAID, SELFPAY ==
[2020-07-26 11:45] VITALS: BMI 24.7
--- NOTE | 2020-08-11 14:39 | NEURO ---
NCS and/or EMG Patient Report Ordering Doctor: Kyle Yap DATE OF SERVICE: 08/11/20 Caitie Escalante presents for electrodiagnostic testing of the upper limbs. She reports sharp pain from the shoulders down to both hands. Electrodiagnostic findings: Median motor nerve demonstrates normal distal latency, amplitude and conduction velocity bilaterally. Normal ulnar motor response bilaterally, including conduction across the elbow. Normal median and ulnar F waves. Sensory responses are within normal limits. On needle EMG, all muscles tested in the upper limb showed no evidence of denervation with normal motor unit action potentials. Electrodiagnostic impression: This is a normal electrodiagnostic study of the upper limbs. There is no electrodiagnostic evidence for peripheral neuropathy, including carpal tunnel or cubital tunnel syndrome. There is no electrodiagnostic evidence for cervical radiculopathy. If there are any further questions, please do not hesitate to contact me.
== END ==
PROVIDERS: PCP Family Medicine; Referring Provider Family Medicine; Visit Provider Family Medicine
DX: M79.2 Neuralgia and neuritis, unspecified (principal)
CPT/HCPCS: 95886; 95913

== ENCOUNTER → 2021-03-09 | Outpatient (CLI) | payer MEDICAID, SELFPAY | END | disposition home or self-care (01) | LOC: LABSPEC 15:50 | PROVIDERS: PCP Family Medicine; Referring Provider Family Medicine; Visit Provider Family Medicine | DX: R09.89 Other specified symptoms and signs involving the circulatory and respiratory systems (principal) | CPT/HCPCS: 87635; U0005; U0003 ==

== ENCOUNTER → 2021-04-06 14:27 | Outpatient (CLI) | payer MEDICAID, SELFPAY ==
[2021-04-06 15:30] LABS: Absolute Lymphocyte Count 3.38 X10^3/uL (0.83-4.51); Absolute Neutrophil Count 6.1 X10^3/uL (2.0-7.7); Basophil# 0.04 X10^3/uL; Basophil% 0.4 % (0-1); Eosinophil# 0.57 X10^3/uL; Eosinophils% 5.4 % (0-5); Hematocrit 40.8 % (37-47); Hemoglobin 13.6 g/dL (12.0-15.0); Lymphocyte # 3.38 X10^3/ul (0.83-4.51); Lymphocyte % 31.9 % (19-41); Mean Corp Hgb Conc 33.3 g/dL (32-36); Mean Corpuscular Hgb 29.7 pg (27.0-32.0); Mean Corpuscular Volume 89.1 fL (81-99); Mean Platelet Vol. 11.2 fl (6.2-12.0); Monocyte# 0.52 X10^3/uL; Monocyte% 4.9 % (0-10); NRBC Flagged by Analyzer 0 % (0-5); Neutrophil # 6.05 X10^3/uL (2.7-7.7); Neutrophil % 57.1 % (47-70); Platelet Count 264 K/mm3 (150-450); RBC Distribution Width CV 12.5 % (11.6-14.6); RBC Distribution Width SD 40.4 fl (35.1-43.9); Red Blood Count 4.58 M/mm3 (4.2-5.4); White Blood Count 10.6 K/mm3 (4.4-11.0)
[2021-04-06 15:39] LABS: Carboxyhemoglobin Frac (CO) 7.4 % (0.0-1.5)
[2021-04-06 15:53] LABS: Anion Gap 2 (5-15); BUN 9 mg/dL (7-18); BUN/Creat Ratio 15.4 RATIO (10-20); Chloride 106 mmol/L (98-107); Creatinine, Serum 0.59 mg/dL (0.55-1.02); EST Glomerular Filtration Rate 128 mL/min (>60); Est Glom Filt Rate - Afr Amer 155 mL/min (>60); Glucose 94 mg/dL (74-106); Potassium 4.3 mmol/L (3.5-5.1); Sodium Level 138 mmol/L (136-145)
== END ==
PROVIDERS: PCP Family Medicine; Referring Provider Family Medicine; Visit Provider Family Medicine
DX: R51.9 Headache, unspecified (principal)
CPT/HCPCS: 36415; 80048; 82375; 85025

== ENCOUNTER → 2021-04-12 13:33 | Outpatient (CLI) | payer MEDICAID, SELFPAY ==
[2021-04-12 15:18] LABS: Carboxyhemoglobin Frac (CO) 10.2 % (0.0-1.5)
== END ==
PROVIDERS: PCP Family Medicine; Referring Provider Family Medicine; Visit Provider Family Medicine
DX: R51.9 Headache, unspecified (principal)
CPT/HCPCS: 36415; 82375

== ENCOUNTER → 2021-05-06 10:24 | Outpatient (CLI) | payer MEDICAID, SELFPAY ==
--- NOTE | 2021-05-06 10:25 | MRI_ITS ---
EXAM: MR HEAD WITHOUT AND WITH INTRAVENOUS CONTRAST CLINICAL INDICATION: headaches TECHNIQUE: Multiplanar and multisequence MR images of the brain were obtained without and with intravenous contrast. This report was created using [employer] report Tup[employer] technology. CONTRAST: IV 15ml Dotarem COMPARISON: None. FINDINGS: BRAIN AND EXTRA-AXIAL SPACES: Unremarkable. No intra- or extra-axial hemorrhage. No evidence of acute infarct. No intracranial mass or mass effect. There is preservation of the robbins/white matter interface. Posterior fossa structures are unremarkable. Ventricles and cisterns are normal. SELLA: Unremarkable. Normal sella turcica, pituitary gland, infundibular stalk, optic chiasm and hypothalamus. AUDITORY SYSTEM: Unremarkable. The internal auditory canals are patent. BONES/JOINTS: Unremarkable. No discrete lytic or blastic abnormalities. SINUSES: Minimal mucosal thickening in the left maxillary sinus. MASTOID AIR CELLS: Unremarkable as visualized. Clear. ORBITS: Unremarkable as visualized. Both globes, extraocular muscles, optic nerves and retrobulbar fat appear unremarkable. VASCULATURE: Unremarkable as visualized. Normal flow voids in the major intracranial circulation. MRI/Brain W/WO Contrast IMPRESSION: Normal MRI brain with and without contrast. Electronically Signed: Carlos Peña MD at 12:47 EST , Service support ,
== END ==
PROVIDERS: PCP Family Medicine; Referring Provider Family Medicine; Visit Provider Family Medicine
DX: R51.9 Headache, unspecified (principal)
CPT/HCPCS: 70553; A9575

== ENCOUNTER 2021-07-19 11:33 | Outpatient (CLI) | payer MEDICAID, SELFPAY | END 2021-07-19 23:59 | disposition home or self-care (01) | LOC: MTRAD 11:36 | PROVIDERS: PCP Family Medicine; Referring Provider Chiropractor; Visit Provider Chiropractor | DX: M99.02 Segmental and somatic dysfunction of thoracic region (principal); M99.03 Segmental and somatic dysfunction of lumbar region; M99.05 Segmental and somatic dysfunction of pelvic region; M99.01 Segmental and somatic dysfunction of cervical region; G43.909 Migraine, unspecified, not intractable, without status migrainosus; M54.2 Cervicalgia | CPT/HCPCS: 72040; 72100 ==

== ENCOUNTER 2021-07-21 10:00 | Outpatient (RCR) | payer MEDICAID, SELFPAY ==
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
--- NOTE | 2021-08-19 09:20 | HP.PTDCSUM ---
It has been my pleasure to treat HERMES GUNTER referred by Dr. Kel Sotomayor DO, with the diagnosis of Bilateral cubital tunnel syndrome for a total of 8 visit(s). Discharge Date: 07/21/21 Please see the following information for a summary of their discharge status. Subjective: Pt. reports overall doing better. She is still having some issues in her L elbow, but the right side is fine. She is to have her nerve conduction test next week. Pt. reports feeling stronger and that her tingling has improve, more so on the R side. 70% better noted B elbows Pain Intensity (Out of 10): 4 % Improvement: 70 Objective/Function: Pt. has good strength of B shoulders, L 5-/5, R 5/5 throughout. 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 Pt. reports tingling in her L 4th/5th digits and pain in similar region. She reports being compliant with nerve glide and strengthening exercises. She reports being I with these and desires to complete I at this point in time. She is to complete her nerve conduction testing then follow up with ortho. Goal 1:: LTG: Pt. to be I with HEP for nerve glides and thoracic mobility. Goal Progress: Goal Met Goal 2:: STG: Pt. to have decreased B distal UE tingling to intermittently at 3-4 times per week. Goal Progress: Progressing Goal 3:: LTG: Pt. to reports abolishment of N/T in BUEs. Goal Progress: Progressing Goal 4:: LTG: Pt. to have full thoracic and B shoulder ROM without increase in symptoms. Goal Progress: Progressing Goal 5:: LTG: Pt. to have no symptoms with all nerve glide movements. Goal Progress: Progressing Plan: Dc to back to ortho at this point in time. Discharge Comments: pt. was treated with nerve glides, strengthening exercises and postural awareness. Pt. did well, R better than L. She is still having some issues with the 4th/5th digits. She is I with HEP and desires to complete I at this point in time. She will do her nerve conduction test next week then follow up with ortho. If there are questions or concerns regarding this patient's physical therapy, please feel free to call me at [phone]. Thank you for the referral of this patient. Sincerely, Wilfredo Langley, DPT Balance/Gait/Functional tests - Balance/Special Test Scores Quick DASH Score: 20.4595
== END 2021-07-21 19:00 | disposition home or self-care (01) ==
LOC: PT 10:00
PROVIDERS: PCP Family Medicine; Referring Provider Orthopaedic Surgery; Visit Provider Orthopaedic Surgery
DX: G56.23 Lesion of ulnar nerve, bilateral upper limbs (principal)
CPT/HCPCS: 97110; 97161; 97164

== ENCOUNTER 2021-07-29 10:09 | Outpatient (CLI) | payer MEDICAID, SELFPAY ==
--- NOTE | 2021-07-29 11:29 | NEURO ---
NCS and/or EMG Patient Report Ordering Doctor: Katarina Brown DATE OF SERVICE: 07/29/21 Indication: Bilateral arm weakness, numbness, swelling and paresthesia (left greater than right). Evaluate for peripheral nerve entrapment or cervical radiculopathy. Findings: Nerve conduction studies were performed in the right and left upper extremities. The right median motor study recording the abductor pollicis brevis showed a normal amplitude, normal distal latency and normal conduction velocity. The right ulnar motor study recording the abductor digiti minimi showed a normal amplitude, normal distal latency and normal conduction velocity. No conduction block or focal slowing was present across the elbow. Right median-ulnar lumbrical / interosseous motor latencies showed a normal median latency compared to the ulnar. The right median sensory response recording digit two showed a normal amplitude, latency and conduction velocity. The right ulnar sensory response recording digit five showed a normal amplitude, latency and conduction velocity. The right radial sensory response recording over the extensor snuff box showed a normal amplitude, latency and conduction velocity. The left median motor study recording the abductor pollicis brevis showed a normal amplitude, normal distal latency and normal conduction velocity. The left ulnar motor study recording the abductor digiti minimi showed a normal amplitude, normal distal latency and normal conduction velocity. No conduction block or focal slowing was present across the elbow. Left median-ulnar lumbrical / interosseous motor latencies showed a normal median latency compared to the ulnar. The left median sensory response recording digit two showed a normal amplitude, latency and conduction velocity. The left ulnar sensory response recording digit five showed a normal amplitude, latency and conduction velocity. The left radial sensory response recording over the extensor snuff box showed a normal amplitude, latency and conduction velocity. Needle EMG of the right upper extremity and cervical paraspinal muscles was performed. No denervation was seen in any muscle. All motor unit morphology, activation and recruitment patterns were normal. Needle EMG of the left upper extremity and cervical paraspinal muscles was omitted given the normal findings in the more symptomatic limb. Impression: This is a normal study. There is no electrophysiologic evidence of entrapment in either upper extremity. In addition, there is no electrophysiologic evidence of cervical radiculopathy or brachial plexopathy in the left upper extremity. Gaurav Bennett D.O. Multi Select Codes Neurology Neurology Interp Codes: 28300-88 Musc test done w/n test comp (interp) and 79867-25 Nrv cndj test 13/> studies (interp)
== END 2021-07-29 23:59 | disposition home or self-care (01) ==
LOC: PSN 10:10
PROVIDERS: PCP Family Medicine
DX: M79.2 Neuralgia and neuritis, unspecified (principal)
CPT/HCPCS: 95886; 95913

== ENCOUNTER 2021-08-16 08:56 | Day surgery (SDC) | payer MEDICAID, SELFPAY ==
[2021-08-16 09:40] VITALS: BP 104/69; PULSE 72; RESP 16; TEMP 36.8; O2SAT 98; BMI 30.1
--- NOTE | 2021-08-16 09:48 | OP.PCM_ITS ---
Problems Associated Problem List Diagnoses (1) Stress incontinence: Report of Operation Date of Procedure: 08/16/21 Pre-Operative Diagnosis: Stress urinary incontinence Post-Operative Diagnosis: Same Surgery/Procedure Performed:: Mid urethral sling, cystourethroscopy Surgeon: Pat Ritchie Type of Anesthesia: General Specimen's removed: None Estimated Blood Loss (mL): 10cc Description of Procedure: The patient is a 31-year-old female with significant stress urinary incontinence she underwent evaluation in the office now presents for definitive surgical intervention. Informed consent was obtained. She was taken to the operating room and placed on the operating room table. Anesthesia monitored the head, neck, airway, IV access and vital signs throughout the case. Once anesthesia was appropriate ministered the patient was placed into dorsal lithotomy position and was prepped and draped in usual sterile fashion. A 16 Yoruba Juarez catheter was inserted and the bladder was drained. The submucosa of the mid urethra was injected with 1% lidocaine with epinephrine for hydros tatic dissection and hemostatic control. A midline vertical 1.5 cm incision was then made and both sharp and blunt dissection was performed on either side of the urethra. At this time the trochars were used to pass the sling into the transobturator complexes bilaterally. The sling was positioned against the urethra without tension. It lay flat. The tensioning suture was then cut. The incision was closed using running interlocking 2-0 Vicryl. At this time the Juarez catheter was removed and the cystoscope was inserted through the urethra under direct visualization. There is no entry into the urethra or the urinary bladder identified. No other abnormalities were seen. The patient's bladder was left minimally full. The cystoscope was removed and the procedure was terminated. The patient was awakened and taken to the recovery room in good condition. There were no complications during this procedure. Grafts/Implants Used: Altis mid urethral sling Complications None Admit VTE Documentation VTE Present on Admission: Yes VTE Mechan Device Prophylaxis: SCD's VTE Pharm Prophylaxis ordered?: No Reason prophylaxis not ordered:: Treatment Not Indicated
--- NOTE | 2021-08-16 09:51 | PCM.DC ---
Discharge Instructions Diet Discharge Diet: No restrictions Activity Discharge Activity: May Drive (When not taking pain medication) and May Shower May resume sexual activity in: 4 weeks Lifting Restrictions: 5 pound restriction for 4 weeks Additional Activity Instructions:: No strenuous exercise, no sexual activity, no swimming, no tub bathing, no hot tubs for 4 weeks Dressing / Incision Call your doctor if your incision/area has: Continuous Slow Oozing, Sudden Increased Bleeding, Increased Pain/ Swelling, Increased Redness, Foul Smelling Discharge and Swelling at the incision site Call your doctor if you observe: Fever of 101 or Higher, Inability to urinate and Inability to have a bowel movement Follow Up Care Please Follow Up With: Pat Ritchie MD When: Call the office for appointment to be seen in 2 weeks Test Results: Test results from this visit will be discussed in further detail at your follow-up appointment, if applicable. Discharge Plan Admission Attending Provider: Pat Ritchie Primary Care Provider: Kyle Yap Discharge Orders/Prescriptions Prescriptions: New oxycodone-acetaminophen [oxycodone-acetaminophen] 1 TABLET tablet 2 tab PO Q8H PRN PRN (Reason: Pain) 7 Days Qty: 20 RF: 0 sulfamethoxazole-trimethoprim [sulfamethoxazole-trimethoprim] 1 TABLET tablet 1 tab PO BID 3 Days Qty: 6 RF: 0 Continued acetaminophen [Tylenol] 325 mg capsule 325 mg PO ONCE PRN (Reason: Pain) RF: 0 meloxicam 15 mg tablet 15 mg PO DAILY Qty: 30 RF: 0 multivitamin Tablet 1 tab PO DAILY RF: 0 omeprazole 40 mg capsule,delayed release(DR/EC) 40 mg PO DINNER Qty: 90 RF: 1 sertraline 50 mg tablet 50 mg PO DAILY Qty: 30 RF: 3 metoprolol tartrate 25 mg tablet 25 mg PO BID Qty: 180 RF: 1 Referrals / Follow Up: Kyle Yap DO [Primary Care Provider] - Disposition Disposition (needs filled in before D/C Order can be placed): Home, Self Care
[2021-08-16] MEDS: Cefazolin 2 GM in 0.9% Normal Saline 100 ML IV (10:07)
[2021-08-16] MEDS: Lidocaine 1%/Epi 1:200 (30ml) 30 ML AMPUL (10:38)
[2021-08-16 10:48] VITALS: BP 104/69; BP 93/61; PULSE 77; RESP 12; TEMP 36.3; O2SAT 93
[2021-08-16 11:00] VITALS: BP 104/69; BP 110/81; PULSE 83; RESP 14; O2SAT 100
[2021-08-16 11:15] VITALS: BP 104/69; BP 109/73; PULSE 86; RESP 14; O2SAT 99
[2021-08-16 11:30] VITALS: BP 104/69; BP 105/73; PULSE 80; RESP 14; TEMP 36.3; O2SAT 76
[2021-08-16] MEDS: oxyCODONE 5 MG Tablet PO (11:44)
[2021-08-16 12:29] VITALS: BP 104/69; BP 98/58; PULSE 69; RESP 16; TEMP 36.6; O2SAT 98
== END 2021-08-16 23:59 | disposition home or self-care (01) ==
LOC: SDC 08:56 → AC 08:57
PROVIDERS: PCP Family Medicine; Referring Provider Urology; Visit Provider Urology
PROC: 0TJB8ZZ Inspection of Bladder, Via Natural or Artificial Opening Endoscopic (ICD-10-PCS; CPT 57288; principal; 2021-08-16 10:30)
DX: N39.46 Mixed incontinence (principal); R35.0 Frequency of micturition; R35.1 Nocturia; F32.A Depression, unspecified; R51.9 Headache, unspecified; M99.01 Segmental and somatic dysfunction of cervical region; M99.02 Segmental and somatic dysfunction of thoracic region; M99.03 Segmental and somatic dysfunction of lumbar region; M99.05 Segmental and somatic dysfunction of pelvic region; R00.0 Tachycardia, unspecified; F41.9 Anxiety disorder, unspecified; J45.909 Unspecified asthma, uncomplicated; K21.9 Gastro-esophageal reflux disease without esophagitis; Z79.899 Other long term (current) drug therapy
CPT/HCPCS: 57288; 00860; 87426; C9803; J7120; J2405

== ENCOUNTER → 2021-11-11 | Outpatient (CLI) | payer MEDICAID, SELFPAY ==
[2021-11-11 12:37] LABS: Absolute Lymphocyte Count 3.35 X10^3/uL (0.83-4.51); Absolute Neutrophil Count 11.8 X10^3/uL (2.0-7.7); Basophil# 0.05 X10^3/uL; Basophil% 0.3 % (0-1); Eosinophil# 0.35 X10^3/uL; Eosinophils% 2.1 % (0-5); Hematocrit 43.6 % (37-47); Hemoglobin 14.4 g/dL (12.0-15.0); Lymphocyte # 3.35 X10^3/ul (0.83-4.51); Lymphocyte % 20.5 % (19-41); Mean Corpuscular Hgb 29.4 pg (27.0-32.0); Mean Platelet Vol. 11.6 fl (6.2-12.0); Monocyte# 0.66 X10^3/uL; NRBC Flagged by Analyzer 0 % (0-5); Neutrophil # 11.83 X10^3/uL (2.7-7.7); Neutrophil % 72.7 % (47-70); Platelet Count 257 K/mm3 (150-450); RBC Distribution Width CV 12.6 % (11.6-14.6); RBC Distribution Width SD 41.3 fl (35.1-43.9); White Blood Count 16.3 K/mm3 (4.4-11.0)
[2021-11-11 13:00] LABS: Vitamin B12 307 pg/mL (211-911)
[2021-11-11 13:05] LABS: AST(SGOT) 11 U/L (15-37); Alanine Aminotransfer ALT/SGPT 20 U/L (13-56); Albumin, Serum 3.8 g/dL (3.2-5.0); Alkaline Phosphatase 78 U/L (45-117); Amylase 30 U/L (25-115); Anion Gap 6 (5-15); BUN 9 mg/dL (7-18); BUN/Creat Ratio 13.6 RATIO (10-20); Calcium,Total 9.3 mg/dL (8.5-10.1); Chloride 106 mmol/L (98-107); Cholesterol 177 mg/dL (200); Creatinine, Serum 0.66 mg/dL (0.55-1.02); EST Glomerular Filtration Rate 112 mL/min (>60); Est Glom Filt Rate - Afr Amer 135 mL/min (>60); Globulin 3.8 g/dL (2.2-4.2); Glucose 102 mg/dL (74-106); High Density Lipoprotein 33 mg/dL; Lipase 75 U/L (73-393); Protein, Total 7.6 g/dL (6.4-8.2); Rheumatoid Factor < 10.0 IU/mL (<15); Sodium Level 138 mmol/L (136-145); Thyroid Stim Hormone (TSH) 1.83 uIU/mL (0.358-3.74); Triglycerides 220 mg/dL; Very Low Density Lipoprotein 44 mg/dL (5-40)
[2021-11-14 13:07] LABS: Anti-Centromere B Ab <0.2 AI (0.0-0.9); Anti-Chromatin <0.2 AI (0.0-0.9); Anti-Jo <0.2 AI (0.0-0.9); Anti-Scleroderma-70 AB <0.2 AI (0.0-0.9); RNP Ab <0.2 AI (0.0-0.9); SJOGREN'S Anti-SS-A test < 0.2 AI (0.0-0.9); SJOGREN'S Anti-SS-B test < 0.2 AI (0.0-0.9); Smith Ab <0.2 AI (0.0-0.9)
[2021-11-14 15:40] LABS: Anti-dsDNA Ab 4 IU/mL (0-9)
== END | disposition home or self-care (01) ==
LOC: BIMLAB 11:12
PROVIDERS: PCP Family Medicine; Referring Provider Physician Assistant; Visit Provider Physician Assistant
DX: M25.40 Effusion, unspecified joint (principal); R20.2 Paresthesia of skin; R07.9 Chest pain, unspecified; E53.8 Deficiency of other specified B group vitamins; Z13.29 Encounter for screening for other suspected endocrine disorder; Z13.220 Encounter for screening for lipoid disorders
CPT/HCPCS: 36415; 80053; 80061; 82150; 82607; 83690; 84443; 85025; 86225; 86235; 86431

== ENCOUNTER → 2021-12-05 | Outpatient (CLI) | payer MEDICAID, SELFPAY ==
--- NOTE | 2021-12-05 09:44 | NM_ITS ---
CLINICAL: Female, 31 years old. History, Signs T Symptoms abdominal pain radiating to back NUCLEAR BILIARY SCAN TECHNIQUE: Following the intravenous administration of 5.5 mCi of Tc Mebrofenin, hepatobiliary images was performed. 8 oz. BOOST for fatty meal COMPARISON STUDIES : NM - None. CR - Not available for review at this time. CT - Not available for review at this time. MR - Not available for review at this time. US - Not available for review at this time. FINDINGS: Relatively prompt and homogeneous radiopharmaceutical concentration is noted by a normal sized liver. There are no parenchymal defects noted.. Gallbladder activity is identified at 10 minutes post radiopharmaceutical administration. Small bowel activity is identified at 30 minutes post radiopharmaceutical administration. Washout of the radiopharmaceutical by the hepatic parenchyma occurs in a normal fashion on qualitative inspection. The post Cholecystokinin gallbladder ejection fraction is calculated at 30 minutes following Cholecystokinin administration was noted to be 96% (normal greater than 35%). NM/Hepatobilliary Img w/Pharm Int IMPRESSION: Normal 99m TC Mebrofenin hepatobiliary imaging survey with fatty boost. A gallbladder ejection fraction calculated to be greater than 35% following the administration of Cholecystokinin makes the probability of functional hepatobiliary disease (gallbladder and/or sphincter of Oddi dyskinesia) and/or organic hepatobiliary disease (chronic acalculous cholecystitis and/or cystic duct syndrome) to be low. (Georgina Lopez et al, Journal of Nuclear Medicine 32:1695, 1991). Electronically Signed: Tera Candelario MD at 15:14 EDT ,
== END | disposition home or self-care (01) ==
LOC: NM 09:44
PROVIDERS: PCP Family Medicine; Referring Provider Physician Assistant; Visit Provider Physician Assistant
DX: R10.9 Unspecified abdominal pain (principal)
CPT/HCPCS: 78227; A9537

== ENCOUNTER 2022-02-17 09:04 | Emergency (ER) | payer MEDICAID, SELFPAY ==
[2022-02-17 09:06] VITALS: BP 108/82; PULSE 72; RESP 18; TEMP 36.6; O2SAT 100; BMI 29.4
--- NOTE | 2022-02-17 09:13 | EKG12_ITS ---
Test Reason : CP Blood Pressure : / mmHG Vent. Rate : 064 BPM Atrial Rate : 064 BPM P-R Int : 128 ms QRS Dur : 090 ms QT Int : 364 ms P-R-T Axes : 079 044 034 degrees QTc Int : 375 ms Normal sinus rhythm Normal ECG Confirmed by CHARLEY KILPATRICK MD ([id number]), news videotape editor NEVA DAWKINS ([id number]) on 02/20/2022 10:06:46 AM Referred By: JEREMY Confirmed By:CHARLEY KILPATRICK MD
--- NOTE | 2022-02-17 09:45 | ED.VIS.CHEST ---
HPI History of Present Illness Chief Complaint: Chest Pain Informant: patient Onset/Context/Timing Onset: Yesterday Activity at onset: gradual Timing: Waxes and wanes Quality: Positive for Tightness Location: Substernal and Left Chest (Left scapula) Worsened By: Nothing Relieved By: Rest Associated Symptoms: Positive for Dyspnea, Cough, Acid Reflux and Palpitations; Negative for Nausea, Vomiting, Diaphoresis, Fever or Lightheadedness Narrative Narrative: Patient presents with chest pain that began yesterday. Patient states that improved somewhat last night but then became worse again today. Patient describes it as a tightness. Patient states it is over the substernal area and radiates to her left scapula. Patient states it is better with rest. Patient states nothing makes it worse. Patient admits to a dry cough and some slight shortness of breath with this. Patient also admits to some reflux. Patient also states she feels like her heart is racing at times. Patient is a smoker. Patient denies any other cardiac or PE risk factors. CVD Risk Factors: Positive for Smoking; Negative for Hypertension, Diabetes, Hypercholesterolemia or Family History 1' </=55 PE Risk Factors: Negative for Recent Travel/Surgery, Recent Immobilization, Prior DVT or PE, Cancer or OCP + Smoking + >/=35 PFSH PFSH Medical History Anemia Anxiety Arthritis Asthma Back pain Back problem Bright red rectal bleeding Cervical dysplasia Chronic headaches Depression Diarrhea Gastric reflux GERD (gastroesophageal reflux disease) Hearing problem History of echocardiogram History of edema History of Holter monitoring History of irregular heartbeat Hx of hemorrhoids Injury of head and neck Migraine headache Seizures Smoker Stress incontinence Vision problems Wears hearing aid Home Medications acetaminophen 325 mg capsule (Tylenol) 325 mg PO ONCE PRN Pain 06/02/20 [History Last Taken Unknown] metoprolol tartrate 25 mg tablet 25 mg PO BID #180 tabs 08/01/21 [Rx Last Taken 08/16/21 08:00] multivitamin 1 tab PO DAILY 08/09/21 [History Last Taken Unknown] esomeprazole magnesium 40 mg capsule,delayed release 40 mg PO DAILY #90 caps 11/12/21 [Rx Last Taken Unknown] meloxicam 15 mg tablet 15 mg PO DAILY Pain #30 tabs 11/12/21 [Rx Last Taken Unknown] sertraline 50 mg tablet 50 mg PO DAILY depression #30 tabs 11/12/21 [Rx Last Taken Unknown] Allergy/AdvReac Type Severity Reaction Status Date / Time aspirin AdvReac Hives Verified 02/17/22 09:05 Penicillins [PCN] AdvReac Other Verified 02/17/22 09:05 Family History Mother Anemia Anxiety Asthma Depression Uncle Anemia Grandmother Anxiety Asthma Arthritis Heart disease Depression Hypertension High cholesterol Seizures CVA (cerebral vascular accident) Grandmother Anxiety Arthritis Bowel disease Depression Hypertension High cholesterol Daughter Asthma Aunt Cervical cancer Grandfather Cancer Uncle Cancer Surgical History History of bladder surgery History of hysterectomy History of loop electrical excision procedure (LEEP) History of oral surgery history tubal removal Hx of colonoscopy Social History Smoking Status: Current every day smoker tobacco type: cigarettes Tobacco: How many years used: 15 second hand exposure: Yes alcohol intake: never substance use type: does not use caffeine: Yes what type of physical activity do you participate in: none ROS ROS ED Constitutional Constitutional ED: Denies chills or fever(s) Eyes Eyes: Denies blurry vision or change in vision ENT ENT ED: Denies rhinorrhea or sore throat Cardiovascular Cardiovascular: Reports chest pain, palpitations and racing heartbeat Respiratory/Chest Respiratory/Chest: Reports cough and dyspnea Gastrointestinal Gastrointestinal: Denies abdominal pain, nausea or vomiting Genitourinary Genitourinary ED: Denies dysuria or hematuria Musculoskeletal Musculoskeletal: Denies back pain or neck pain Integumentary Denies abscess or rash Neurologic Neurologic: Denies headache(s) or weakness Allergic/Immunologic Allergic/Immunologic ED: Denies mouth swelling or urticaria EXAM Physical Exam Const Vital Signs: 02/17/22 09:06 02/17/22 09:13 02/17/22 10:33 Temperature 97.8 F Temperature Source Temporal Pulse Rate 72 68 Respiratory Rate 18 9 L Respiratory Effort Normal Non-Labored Respiratory Pattern Normal Blood Pressure 108/82 H 106/74 Blood Pressure Mean 90 84 Pulse Ox 100 98 Oxygen Delivery Method Room Air Room Air Positive well nourished and well developed General Appearance ED: well developed and NAD HEENT normocephalic and atraumatic Eyes PERRL and EOMs intact bilaterally Neck supple and no JVD Chest Wall palpation of chest normal Resp normal respiratory effort and clear to auscultation bilaterally Effort and Inspection: Negative for respiratory distress Cardio regular rate, regular rhythm and no murmurs GI normal to inspection, nondistended, normoactive bowel sounds, soft to palpation, non-tender and non-distended Extremity normal to inspection General Extremety ED: Negative for edema or tenderness General Extremity: Negative for edema Neuro oriented x3, CN's II-XII intact bilaterally and no sensory deficits noted Sensorium / Orientation: awake and alert Motor Exam: strength 5/5 throughout Psych mental status grossly normal Heart Score History: Slightly/Non-Suspicious ECG: Normal Age: </= 45 years Risk Factors: 1 or 2 Risk Factors Score: 1 MDM MDM MDM Narrative Medical decision making narrative: EKG was obtained. On my interpretation, it showed a normal sinus rhythm with a rate of 64. [place] interval, QRS interval, and QTc intervals were all normal. [place] was normal. There are no acute ST or T wave changes. PA and lateral chest x-ray was obtained. There are 2 views. On my interpretation, lung espinoza are clear. There is normal cardiac silhouette. Bony thorax is normal. There is no acute process noted. Radiologist also interpreted the x-ray and agrees. CBC was within normal limits. Basic metabolic profile was within normal limits. High-sensitivity troponin was normal. Patient has a HEART score of 1. Patient was advised that this is low risk for acute cardiac event. Patient was instructed to follow-up with her primary care physician in 5 to 7 days. Patient understood and was agreeable with the plan. All questions were answered. Lab Data Attestation: I reviewed the patient's lab results. Labs: Laboratory Results - last 24 hr 02/17/22 02/17/22 09:20 09:20 WBC 9.8 RBC 4.91 Hgb 14.5 Hct 43.8 MCV 89.2 MCH 29.5 MCHC 33.1 RDW Std Deviation 40.9 RDW Coeff of Evens 12.4 Plt Count 225 MPV 11.5 Immature Gran % (Auto) 0.300 Neut % (Auto) 57.1 Lymph % (Auto) 31.4 Kershaw % (Auto) 6.7 Eos % (Auto) 4.1 Baso % (Auto) 0.4 Absolute Neuts (auto) 5.6 Absolute Lymphs (auto) 3.07 Nucleated RBC % 0 Sodium 139 Potassium 3.9 Chloride 105 Carbon Dioxide 29.0 Anion Gap 5 BUN 12 Creatinine 0.69 Estim Creat Clear Calc 107.28 Est GFR (MDRD) Af Amer 128 Est GFR (MDRD) Non-Af 106 BUN/Creatinine Ratio 17.4 Glucose 95 Calcium 9.6 Troponin I High Sens 3 Radiography Chest X-Ray - ED: 2 View, Read by ED Physician, Read by Radiologist and No Acute Disease Diagnostic Testing: Clinical Impression(s) from Imaging Studies Chest X-Ray 02/17/22 10:00 IMPRESSION: Lungs are clear. Pectus excavatum deformity. Electronically Signed: Lance Borden MD at 10:30 EDT , EKG Initial EKG: Attestation: I personally reviewed and interpreted this EKG as follows: Interpretation: Sinus Rhythm (64) and No Acute Injury Pattern Prior EKG tracings: available for review Prior: Unchanged (09/12/2019) Discharge Plan Triage Chief Complaint: Chest Pain ED Provider: Gregory Noel Dx/Rx/DC Orders Clinical Impression: Chest pain, GERD (gastroesophageal reflux disease) Instructions: ED Chest Pain, Uncertain Cause Prescriptions: No Action acetaminophen [Tylenol] 325 mg capsule 325 mg PO ONCE PRN (Reason: Pain) meloxicam 15 mg tablet 15 mg PO DAILY Qty: 30 0RF Rx Instructions: Do not take in conjunction with other NSAIDs. sertraline 50 mg tablet 50 mg PO DAILY Qty: 30 3RF esomeprazole magnesium 40 mg capsule,delayed release(DR/EC) 40 mg PO DAILY Qty: 90 0RF Rx Instructions: Take at least one hour before meal multivitamin Tablet 1 tab PO DAILY metoprolol tartrate 25 mg tablet 25 mg PO BID Qty: 180 1RF Primary Care Provider: Kyle Yap Referrals: Kyle Yap, [Primary Care Provider] - 5-7 Days Disposition Disposition: Home, Self Care
[2022-02-17] MEDS: Mag Hydrox/Al Hydrox/Simeth 30 ML UDC PO (09:57)
--- NOTE | 2022-02-17 10:00 | RAD_ITS ---
STUDY: X-RAY CHEST REASON FOR EXAM: Female, 31 years old. Chest pain and shortness of breath. TECHNIQUE: PA and lateral views of the chest. COMPARISON: None. FINDINGS: EKG electrodes are seen. The lungs are clear and expanded. Scattered calcified granulomas. There is no demonstrated pleural abnormality. Normal size heart. Normal mediastinum and julio. Normal visualized pulmonary arteries. Normal visualized aortic arch and descending thoracic aorta. Normal visualized thoracic spine. Normal visualized ribs, clavicles, and shoulders. Pectus excavatum deformity There is no demonstrated abnormality of the visualized soft tissue structures of the upper abdomen. RAD/Chest PA and Lateral IMPRESSION: Lungs are clear. Pectus excavatum deformity. Electronically Signed: Lance Borden MD at 10:30 EDT ,
[2022-02-17 10:01] LABS: Absolute Lymphocyte Count 3.07 X10^3/uL (0.83-4.51); Absolute Neutrophil Count 5.6 X10^3/uL (2.0-7.7); Basophil# 0.04 X10^3/uL; Basophil% 0.4 % (0-1); Eosinophils% 4.1 % (0-5); Hematocrit 43.8 % (37-47); Hemoglobin 14.5 g/dL (12.0-15.0); Lymphocyte # 3.07 X10^3/ul (0.83-4.51); Lymphocyte % 31.4 % (19-41); Mean Corp Hgb Conc 33.1 g/dL (32-36); Mean Corpuscular Hgb 29.5 pg (27.0-32.0); Mean Corpuscular Volume 89.2 fL (81-99); Mean Platelet Vol. 11.5 fl (6.2-12.0); Monocyte# 0.66 X10^3/uL; Monocyte% 6.7 % (0-10); NRBC Flagged by Analyzer 0 % (0-5); Neutrophil # 5.59 X10^3/uL (2.7-7.7); Neutrophil % 57.1 % (47-70); Platelet Count 225 K/mm3 (150-450); RBC Distribution Width CV 12.4 % (11.6-14.6); RBC Distribution Width SD 40.9 fl (35.1-43.9); Red Blood Count 4.91 M/mm3 (4.2-5.4); White Blood Count 9.8 K/mm3 (4.4-11.0)
[2022-02-17 10:17] LABS: Anion Gap 5 (5-15); BUN 12 mg/dL (7-18); BUN/Creat Ratio 17.4 RATIO (10-20); Calcium,Total 9.6 mg/dL (8.5-10.1); Chloride 105 mmol/L (98-107); Creatinine, Serum 0.69 mg/dL (0.55-1.02); EST Glomerular Filtration Rate 106 mL/min (>60); Est Glom Filt Rate - Afr Amer 128 mL/min (>60); Estimated Creatinine Clearance 107.28 ml/min; Glucose 95 mg/dL (74-106); Potassium 3.9 mmol/L (3.5-5.1); Sodium Level 139 mmol/L (136-145); Troponin-I HS 3 pg/mL (3.0-54.0)
[2022-02-17 10:33] VITALS: BP 106/74; PULSE 68; RESP 9; O2SAT 98
== END 2022-02-17 10:41 | disposition home or self-care (01) ==
PROVIDERS: Emergency Provider Emergency Medicine; PCP Family Medicine; Visit Provider Emergency Medicine
DX: R07.9 Chest pain, unspecified (principal); R06.02 Shortness of breath; K21.9 Gastro-esophageal reflux disease without esophagitis; F17.210 Nicotine dependence, cigarettes, uncomplicated; F32.A Depression, unspecified; F41.9 Anxiety disorder, unspecified; Z79.899 Other long term (current) drug therapy
CPT/HCPCS: 71046; 80048; 84484; 85025; 93005; 99285; A4216

== ENCOUNTER → 2024-02-20 | Outpatient (CLI) | payer MEDICAID, SELFPAY ==
--- NOTE | 2024-02-20 10:30 | RAD_ITS ---
INDICATION: chest pain EXAMINATION/TECHNIQUE: X-RAY - XR Chest 2 Views COMPARISON: February 17, 2022 FINDINGS: LINES/DEVICES: None. LUNGS: No consolidation, edema or effusion. No pneumothorax. MEDIASTINUM AND CARDIOVASCULAR STRUCTURES: Cardiac silhouette not enlarged. Central airways and mediastinal contour are unremarkable. BONES AND SOFT TISSUES: Unremarkable. RAD/Chest PA and Lateral IMPRESSION: No radiographic evidence of acute cardiopulmonary disease. Electronically Signed: Mike Wynn DO at 21:19 EDT ,
== END | disposition home or self-care (01) ==
PROVIDERS: PCP Family Medicine; Referring Provider Family Medicine; Visit Provider Family Medicine
DX: R09.89 Other specified symptoms and signs involving the circulatory and respiratory systems (principal)
CPT/HCPCS: 71046

== ENCOUNTER 2025-02-16 23:07 | Emergency (ER) | payer MEDICAID, SELFPAY ==
[2025-02-16 23:07] VITALS: BP 109/82; PULSE 82; RESP 16; TEMP 36.6; O2SAT 99; BMI 25.4
--- NOTE | 2025-02-16 23:24 | CT_ITS ---
PROCEDURE: SINUS/FACIAL BONE 02/17/2025 REASON FOR EXAM: TRAUMA- LEFT EYE TECHNIQUE: Procedure Code: CTSI Modality: CT Procedure: SINUS/FACIAL BONE Coronal and Sagittal reconstruction series were provided. One or more dose reduction techniques were used (e.g., Automated exposure control, adjustment of the mA and/or kV according to patient size, use of iterative reconstruction technique). RADIATION DOSE SUMMARY: CTDI Vol 22.63 mGy DLP :515.6mGycm COMPARISON: none FINDINGS: The nasal bones are intact with no fractures. Bowed nasal septum convex to the right side. The scanned paranasal sinuses show intact bony boundaries. Mild mucosal thickening of the maxillary antra with left maxillary frothy secretions. Focal mucosal thickening of the right ethmoidal air cells. Clear left ethmoidal air cells, frontal and sphenoid sinuses. Patent osteomeatal unit and both sphenoethmoidal recesses. Normal osseous texture of the mandible with no fractures or destructive osseous lesions. Normal temporomandibular joints. The orbital bony boundaries are intact. The orbits have a normal appearance with unremarkable eye globes and extra- ocular muscles. Clear intra-orbital fat planes. The pterygoid plates and pterygopalatine fossa are normal. The zygomatic arches are normal and there is no diastasis of the frontozygomatic suture. CT/Sinus/Facial Bone IMPRESSION: Intact maxillofacial bones and mandible with no fractures. Bowed nasal septum convex to the right side. Mild mucosal thickening of the maxillary antra with left maxillary frothy secre tions. Focal mucosal thickening of the right ethmoidal air cells. Reading Location: [place] [id number]
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
[2025-02-16] MEDS: Tetracaine 0.5% Ophthalmic Bottle 1 DRP LEFT EYE (23:53)
[2025-02-17 02:07] VITALS: BP 107/86; PULSE 79; RESP 18; TEMP 36.6; O2SAT 96
== END 2025-02-17 02:13 | disposition home or self-care (01) ==
PROVIDERS: Emergency Provider Emergency Medicine; PCP Family Medicine; Visit Provider Emergency Medicine
DX: S05.12XA Contusion of eyeball and orbital tissues, left eye, initial encounter (principal); F17.210 Nicotine dependence, cigarettes, uncomplicated; Y93.72 Activity, wrestling
CPT/HCPCS: 70486; 99284